=== PATIENT | male | born 1945 | race Caucasian/White ===

== ENCOUNTER 2022-09-05 11:33 | Inpatient (IN) | payer MEDICARE, OTHER ==
[2022-09-05] MEDS ORDERED: Acetaminophen 325 MG TAB PO PRN (14:12)
[2022-09-05] MEDS ORDERED: Dextrose 5% in Water 1,000 ML IV PRN (14:14)
[2022-09-05] MEDS ORDERED: Dextrose 50% Abboject 50 ML SYRINGE SLOW IVP PRN (14:14)
[2022-09-05] MEDS ORDERED: Ipratropium/Albuterol 3 ML NEB NEB PRN (14:17)
[2022-09-05 14:22] VITALS: BMI 34.2
[2022-09-05] MEDS ORDERED: Vancomycin HCl 750 MG in Sodium Chloride 0.9% 250 ML 250 ML IVPB SCH (15:00)
[2022-09-05] MEDS: Cefepime 2 GM in Sodium Chloride 0.9% 100 ML IVPB SCH (16:09)
[2022-09-05] MEDS: HumaLOG 300 UNITS/3 ML VIAL SC PRN ×2 (16:16→22:35)
[2022-09-05] MEDS: HYDROcodone/Acetaminophen 5/325 mg Tablet PO PRN (20:13)
[2022-09-05] MEDS ORDERED: Vancomycin 1 GM in Premix Bag 1 BAG IVPB SCH (21:00)
[2022-09-06] MEDS: HYDROcodone/Acetaminophen 5/325 mg Tablet PO PRN ×3 (02:43→20:37)
[2022-09-06] MEDS: Cefepime 2 GM in Sodium Chloride 0.9% 100 ML IVPB SCH ×2 (02:44→17:15)
[2022-09-06 04:55] LABS: #Eosinphils 0.1 thou/uL (0.0-0.7); #Lymphocytes 1.2 thou/uL (1.20-3.40); #Monocytes 1.5 thou/uL (0.11-0.59); #Neutrophils 9.7 thou/uL (1.40-6.50); %Basophils 0.3 % (0.0-1.0); %Eosinophils 0.7 % (0.0-10.0); %Lymphocytes 9.8 % (21.0-51.0); %Monocytes 11.8 % (0.0-10.0); %Neutrophils 77.4 % (42.0-75.0); Hemoglobin 12.9 g/dL (14.0-18.0); Mean Corpuscular HGB CONC 31.9 g/dL (32.0-36.0); Mean Corpuscular Hemoglobin 28.9 pg (27.0-31.0); Mean Corpuscular Volume 90.6 fl (78.0-98.0); Mean Platelet Volume 7.2 fL (7.4-10.4); Platelet Count 231 10x3/uL (130-400); RBC Distribution Width 14.1 % (11.5-14.5); Red Blood Cell (RBC) Count 4.46 mill/uL (4.70-6.10); White Blood Cell (WBC) Count 12.5 10x3/uL (4.8-10.8)
[2022-09-06 05:26] LABS: Anion Gap 17 mmol/L (10-20); BUN (Urea Nitrogen) 24 mg/dL (8.4-25.7); Calc. Creatinine Clearance 73 mL/min (70-130); Calcium 10.2 mg/dL (7.8-10.44); Carbon Dioxide 22 mmol/L (23-31); Chloride 100 mmol/L (98-107); Estimated GFR 53; Glucose 227 mg/dL (83-110); Potassium 4.7 mmol/L (3.5-5.1); Sodium 134 mmol/L (136-145)
[2022-09-06] MEDS: HumaLOG 300 UNITS/3 ML VIAL SC PRN ×3 (06:32→22:44)
[2022-09-06 08:53] LABS: SARS-CoV-2 NAA Rapid Test Not Detected (NotDetected)
[2022-09-06] MEDS: Tamsulosin HCl 0.4 MG CAP PO SCH (09:20)
[2022-09-06] MEDS: Furosemide 20 MG TAB PO SCH ×2 (09:20→14:11)
[2022-09-06] MEDS: Amiodarone 200 MG TAB PO SCH (09:21)
[2022-09-06] MEDS: Empagliflozin 25 MG TAB PO SCH (09:21)
[2022-09-06] MEDS: HumaLOG 300 UNITS/3 ML VIAL SC SCH ×4 (09:22→22:58)
[2022-09-06] MEDS: Spironolactone 25 MG TAB PO SCH (09:22)
[2022-09-06] MEDS: Morphine 2 MG/ML VIAL SLOW IVP PRN ×3 (09:23→19:40)
[2022-09-06] MEDS ORDERED: VANCOMYCIN 1.75 GM/500 ML BAG 1.75 GM in Premix Bag 1 BAG IVPB SCH (12:00)
[2022-09-06] MEDS ORDERED: Neomycin-Polymyxin 1 ML AMP ONE (14:40)
[2022-09-06] MEDS ORDERED: Sodium Chloride 0.9% 100 ML ONE (14:54)
[2022-09-06] MEDS ORDERED: CEFAZOLIN 2 GM VIAL ONE (14:54)
[2022-09-06] MEDS ORDERED: Ondansetron PF 4 MG/2 ML Vial ONE (15:00)
[2022-09-06] MEDS ORDERED: PROPOFOL 200 MG/20 ML VIAL ONE (15:00)
[2022-09-06] MEDS ORDERED: Fentanyl 100 MCG/2 ML VIAL ONE ×2 (16:17→17:36)
[2022-09-06] MEDS: CEFAZOLIN 2 GM in Sodium Chloride 0.9% 100 ML IVPB SCH ×3 (17:15→17:57)
[2022-09-06] MEDS ORDERED: Morphine 2 MG/ML VIAL SLOW IVP SCH (22:00)
[2022-09-06] MEDS: Atorvastatin Calcium 20 MG TAB PO SCH (22:43)
[2022-09-06] MEDS: DULoxetine 60 MG CAP PO SCH (22:43)
[2022-09-06] MEDS: Insulin Glargine 30 UNITS/0.3 ML VIAL SC SCH (22:58)
[2022-09-07] MEDS: HYDROcodone/Acetaminophen 5/325 mg Tablet PO PRN ×2 (00:44→23:45)
[2022-09-07] MEDS: Morphine 2 MG/ML VIAL SLOW IVP PRN (01:28)
[2022-09-07] MEDS: Cefepime 2 GM in Sodium Chloride 0.9% 100 ML IVPB SCH ×2 (03:33→15:05)
[2022-09-07 05:45] LABS: #Lymphocytes 0.8 thou/uL (1.20-3.40); #Monocytes 1.5 thou/uL (0.11-0.59); #Neutrophils 10.8 thou/uL (1.40-6.50); %Basophils 0.3 % (0.0-1.0); %Eosinophils 0.2 % (0.0-10.0); %Lymphocytes 5.9 % (21.0-51.0); %Monocytes 11.5 % (0.0-10.0); %Neutrophils 82.1 % (42.0-75.0); Hemoglobin 12.9 g/dL (14.0-18.0); Mean Corpuscular HGB CONC 32.1 g/dL (32.0-36.0); Mean Corpuscular Hemoglobin 29.3 pg (27.0-31.0); Mean Corpuscular Volume 91.2 fl (78.0-98.0); Mean Platelet Volume 7.5 fL (7.4-10.4); Platelet Count 237 10x3/uL (130-400); RBC Distribution Width 13.9 % (11.5-14.5); Red Blood Cell (RBC) Count 4.41 mill/uL (4.70-6.10); White Blood Cell (WBC) Count 13.2 10x3/uL (4.8-10.8)
[2022-09-07 05:50] LABS: Hemoglobin A1c 8.9 % (4.0-6.0)
[2022-09-07 06:08] LABS: Anion Gap 15 mmol/L (10-20); BUN (Urea Nitrogen) 23 mg/dL (8.4-25.7); CRP (Inflammatory) 24.94 mg/dL (= or < 0.5); Calc. Creatinine Clearance 73 mL/min (70-130); Calcium 10.2 mg/dL (7.8-10.44); Carbon Dioxide 26 mmol/L (23-31); Chloride 96 mmol/L (98-107); Estimated GFR 54; Glucose 225 mg/dL (83-110); Potassium 5.2 mmol/L (3.5-5.1); Sodium 132 mmol/L (136-145)
[2022-09-07] MEDS: HumaLOG 300 UNITS/3 ML VIAL SC PRN ×3 (06:23→16:26)
[2022-09-07] MEDS: Furosemide 20 MG TAB PO SCH ×2 (08:03→13:49)
[2022-09-07] MEDS: Spironolactone 25 MG TAB PO SCH (08:03)
[2022-09-07] MEDS: Tamsulosin HCl 0.4 MG CAP PO SCH (08:04)
[2022-09-07] MEDS: Amiodarone 200 MG TAB PO SCH (08:04)
[2022-09-07] MEDS: Morphine 4 MG/ML VIAL SLOW IVP PRN ×4 (08:04→20:38)
[2022-09-07] MEDS: HumaLOG 300 UNITS/3 ML VIAL SC SCH ×3 (08:50→20:43)
[2022-09-07] MEDS: Empagliflozin 25 MG TAB PO SCH (08:52)
[2022-09-07] MEDS: Lidocaine 5% Patch TD SCH (10:20)
[2022-09-07 11:11] LABS: Vancomycin, Trough 12.7 ug/mL
[2022-09-07] MEDS: VANCOMYCIN 2 GRAM/500 ML BAG 2 GM in Premix Bag 1 BAG IVPB SCH (12:11)
[2022-09-07] MEDS: DULoxetine 60 MG CAP PO SCH (20:36)
[2022-09-07] MEDS: Transdermal Patch Removal TOP SCH (20:37)
[2022-09-07] MEDS: Atorvastatin Calcium 20 MG TAB PO SCH (20:37)
[2022-09-07] MEDS: Insulin Glargine 30 UNITS/0.3 ML VIAL SC SCH (20:45)
[2022-09-07] MEDS: Melatonin 3 MG TAB PO PRN (23:45)
[2022-09-08] MEDS: Cefepime 2 GM in Sodium Chloride 0.9% 100 ML IVPB SCH ×2 (03:50→14:32)
[2022-09-08] MEDS: Morphine 4 MG/ML VIAL SLOW IVP PRN ×2 (05:29→22:24)
[2022-09-08] MEDS: Spironolactone 25 MG TAB PO SCH (08:43)
[2022-09-08] MEDS: Tamsulosin HCl 0.4 MG CAP PO SCH (08:43)
[2022-09-08] MEDS: Amiodarone 200 MG TAB PO SCH (08:43)
[2022-09-08] MEDS: Furosemide 20 MG TAB PO SCH ×2 (08:43→15:40)
[2022-09-08] MEDS: HumaLOG 300 UNITS/3 ML VIAL SC SCH ×3 (08:44→20:23)
[2022-09-08] MEDS: Empagliflozin 25 MG TAB PO SCH (08:45)
[2022-09-08] MEDS: Lidocaine 5% Patch TD SCH (08:51)
[2022-09-08] MEDS: HumaLOG 300 UNITS/3 ML VIAL SC PRN ×2 (11:00→18:29)
[2022-09-08] MEDS: VANCOMYCIN 2 GRAM/500 ML BAG 2 GM in Premix Bag 1 BAG IVPB SCH (11:32)
[2022-09-08] MEDS: Ondansetron PF 4 MG/2 ML Vial IVP PRN ×2 (14:32→20:36)
[2022-09-08] MEDS: Insulin Glargine 30 UNITS/0.3 ML VIAL SC SCH (20:24)
[2022-09-08] MEDS: DULoxetine 60 MG CAP PO SCH (20:24)
[2022-09-08] MEDS: Atorvastatin Calcium 20 MG TAB PO SCH (20:24)
[2022-09-08] MEDS: Transdermal Patch Removal TOP SCH (22:24)
[2022-09-09] MEDS: Cefepime 2 GM in Sodium Chloride 0.9% 100 ML IVPB SCH ×2 (03:02→16:27)
[2022-09-09 05:42] LABS: #Basophils 0.1 thou/uL (0.0-0.2); #Eosinphils 0.2 thou/uL (0.0-0.7); #Lymphocytes 1.3 thou/uL (1.20-3.40); #Monocytes 1.1 thou/uL (0.11-0.59); #Neutrophils 6.8 thou/uL (1.40-6.50); %Basophils 0.8 % (0.0-1.0); %Eosinophils 1.9 % (0.0-10.0); %Lymphocytes 13.8 % (21.0-51.0); %Neutrophils 71.5 % (42.0-75.0); Hemoglobin 12.9 g/dL (14.0-18.0); Mean Corpuscular Volume 90.7 fl (78.0-98.0); Mean Platelet Volume 6.9 fL (7.4-10.4); Platelet Count 274 10x3/uL (130-400); RBC Distribution Width 13.7 % (11.5-14.5); Red Blood Cell (RBC) Count 4.45 mill/uL (4.70-6.10); White Blood Cell (WBC) Count 9.5 10x3/uL (4.8-10.8)
[2022-09-09 06:01] LABS: Anion Gap 14 mmol/L (10-20); BUN (Urea Nitrogen) 38 mg/dL (8.4-25.7); CRP (Inflammatory) 22.22 mg/dL (= or < 0.5); Calc. Creatinine Clearance 67 mL/min (70-130); Calcium 10.4 mg/dL (7.8-10.44); Carbon Dioxide 30 mmol/L (23-31); Chloride 94 mmol/L (98-107); Estimated GFR 49; Glucose 166 mg/dL (83-110); Potassium 4.4 mmol/L (3.5-5.1); Sodium 134 mmol/L (136-145)
[2022-09-09] MEDS: HumaLOG 300 UNITS/3 ML VIAL SC PRN ×4 (06:10→20:35)
[2022-09-09] MEDS: Furosemide 20 MG TAB PO SCH ×2 (09:22→17:02)
[2022-09-09] MEDS: Tamsulosin HCl 0.4 MG CAP PO SCH (09:22)
[2022-09-09] MEDS: Amiodarone 200 MG TAB PO SCH (09:22)
[2022-09-09] MEDS: HYDROcodone/Acetaminophen 5/325 mg Tablet PO PRN ×3 (09:23→20:55)
[2022-09-09] MEDS: Spironolactone 25 MG TAB PO SCH (09:23)
[2022-09-09] MEDS: Empagliflozin 25 MG TAB PO SCH (09:25)
[2022-09-09] MEDS: HumaLOG 300 UNITS/3 ML VIAL SC SCH ×3 (09:26→20:35)
[2022-09-09] MEDS: Lidocaine 5% Patch TD SCH (09:26)
[2022-09-09 11:31] LABS: Vancomycin, Trough 21.6 ug/mL
[2022-09-09] MEDS: VANCOMYCIN 1.75 GM/500 ML BAG 1.75 GM in Premix Bag 1 BAG IVPB SCH (13:41)
[2022-09-09] MEDS: Apixaban 5 MG TAB PO SCH (20:33)
[2022-09-09] MEDS: DULoxetine 60 MG CAP PO SCH (20:34)
[2022-09-09] MEDS: Atorvastatin Calcium 20 MG TAB PO SCH (20:34)
[2022-09-09] MEDS: Insulin Glargine 30 UNITS/0.3 ML VIAL SC SCH (20:34)
[2022-09-09] MEDS: Melatonin 3 MG TAB PO PRN (20:57)
[2022-09-09] MEDS: Transdermal Patch Removal TOP SCH (21:08)
[2022-09-09] MEDS: Senokot S 8.6-50 MG TAB PO PRN (21:14)
[2022-09-10] MEDS: Cefepime 2 GM in Sodium Chloride 0.9% 100 ML IVPB SCH ×2 (02:58→15:53)
[2022-09-10 06:20] LABS: #Eosinphils 0.1 thou/uL (0.0-0.7); #Monocytes 0.9 thou/uL (0.11-0.59); #Neutrophils 7.2 thou/uL (1.40-6.50); %Basophils 0.4 % (0.0-1.0); %Eosinophils 1.3 % (0.0-10.0); %Lymphocytes 10.8 % (21.0-51.0); %Monocytes 9.8 % (0.0-10.0); %Neutrophils 77.6 % (42.0-75.0); Mean Corpuscular Hemoglobin 29.2 pg (27.0-31.0); Mean Corpuscular Volume 91.3 fl (78.0-98.0); Mean Platelet Volume 7.3 fL (7.4-10.4); Platelet Count 274 10x3/uL (130-400); RBC Distribution Width 13.8 % (11.5-14.5); Red Blood Cell (RBC) Count 4.47 mill/uL (4.70-6.10); White Blood Cell (WBC) Count 9.3 10x3/uL (4.8-10.8)
[2022-09-10 06:37] LABS: Anion Gap 16 mmol/L (10-20); BUN (Urea Nitrogen) 36 mg/dL (8.4-25.7); CRP (Inflammatory) 11.66 mg/dL (= or < 0.5); Calc. Creatinine Clearance 78 mL/min (70-130); Calcium 10.3 mg/dL (7.8-10.44); Carbon Dioxide 29 mmol/L (23-31); Chloride 95 mmol/L (98-107); Estimated GFR 58; Glucose 137 mg/dL (83-110); Potassium 4.8 mmol/L (3.5-5.1); Sodium 135 mmol/L (136-145)
[2022-09-10] MEDS: Lidocaine 5% Patch TD SCH (09:08)
[2022-09-10] MEDS: Furosemide 20 MG TAB PO SCH ×2 (09:09→14:14)
[2022-09-10] MEDS: Amiodarone 200 MG TAB PO SCH (09:09)
[2022-09-10] MEDS: Spironolactone 25 MG TAB PO SCH (09:09)
[2022-09-10] MEDS: Tamsulosin HCl 0.4 MG CAP PO SCH (09:09)
[2022-09-10] MEDS: Apixaban 5 MG TAB PO SCH ×2 (09:09→20:15)
[2022-09-10] MEDS: Empagliflozin 25 MG TAB PO SCH (09:10)
[2022-09-10] MEDS: HumaLOG 300 UNITS/3 ML VIAL SC SCH ×3 (09:13→20:18)
[2022-09-10] MEDS: Morphine 4 MG/ML VIAL SLOW IVP PRN ×2 (11:19→13:48)
[2022-09-10] MEDS: VANCOMYCIN 1.75 GM/500 ML BAG 1.75 GM in Premix Bag 1 BAG IVPB SCH (14:14)
[2022-09-10] MEDS: HumaLOG 300 UNITS/3 ML VIAL SC PRN ×2 (14:30→17:01)
[2022-09-10] MEDS: DULoxetine 60 MG CAP PO SCH (20:16)
[2022-09-10] MEDS: Atorvastatin Calcium 20 MG TAB PO SCH (20:16)
[2022-09-10] MEDS: Melatonin 3 MG TAB PO PRN (20:16)
[2022-09-10] MEDS: HYDROcodone/Acetaminophen 5/325 mg Tablet PO PRN (20:16)
[2022-09-10] MEDS: Insulin Glargine 30 UNITS/0.3 ML VIAL SC SCH (20:18)
[2022-09-10] MEDS: Transdermal Patch Removal TOP SCH (21:05)
[2022-09-11] MEDS: Cefepime 2 GM in Sodium Chloride 0.9% 100 ML IVPB SCH ×2 (03:02→14:50)
[2022-09-11] MEDS: HumaLOG 300 UNITS/3 ML VIAL SC PRN ×3 (05:49→22:41)
[2022-09-11] MEDS: Senokot S 8.6-50 MG TAB PO PRN ×2 (05:57→11:17)
[2022-09-11 06:12] LABS: #Eosinphils 0.2 thou/uL (0.0-0.7); #Lymphocytes 1.3 thou/uL (1.20-3.40); #Neutrophils 6.9 thou/uL (1.40-6.50); %Basophils 0.2 % (0.0-1.0); %Eosinophils 2.5 % (0.0-10.0); %Monocytes 10.9 % (0.0-10.0); %Neutrophils 72.4 % (42.0-75.0); Hemoglobin 12.9 g/dL (14.0-18.0); Mean Corpuscular HGB CONC 31.8 g/dL (32.0-36.0); Mean Corpuscular Hemoglobin 29.3 pg (27.0-31.0); Mean Platelet Volume 7.2 fL (7.4-10.4); Platelet Count 282 10x3/uL (130-400); RBC Distribution Width 13.8 % (11.5-14.5); Red Blood Cell (RBC) Count 4.39 mill/uL (4.70-6.10); White Blood Cell (WBC) Count 9.6 10x3/uL (4.8-10.8)
[2022-09-11 06:38] LABS: Anion Gap 14 mmol/L (10-20); BUN (Urea Nitrogen) 39 mg/dL (8.4-25.7); CRP (Inflammatory) 8.24 mg/dL (= or < 0.5); Calc. Creatinine Clearance 74 mL/min (70-130); Calcium 10.5 mg/dL (7.8-10.44); Carbon Dioxide 29 mmol/L (23-31); Chloride 96 mmol/L (98-107); Estimated GFR 55; Glucose 194 mg/dL (83-110); Potassium 4.3 mmol/L (3.5-5.1); Sodium 135 mmol/L (136-145)
[2022-09-11] MEDS: Calcium Carbonate 500 MG ChewTAB PO PRN (08:44)
[2022-09-11] MEDS: Lidocaine 5% Patch TD SCH (08:44)
[2022-09-11] MEDS: Amiodarone 200 MG TAB PO SCH (08:45)
[2022-09-11] MEDS: Empagliflozin 25 MG TAB PO SCH (08:45)
[2022-09-11] MEDS: Spironolactone 25 MG TAB PO SCH (08:45)
[2022-09-11] MEDS: Furosemide 20 MG TAB PO SCH ×2 (08:45→13:12)
[2022-09-11] MEDS: Tamsulosin HCl 0.4 MG CAP PO SCH (08:45)
[2022-09-11] MEDS: Apixaban 5 MG TAB PO SCH ×2 (08:45→22:40)
[2022-09-11] MEDS: HumaLOG 300 UNITS/3 ML VIAL SC SCH ×3 (08:55→22:34)
[2022-09-11] MEDS ORDERED: Simethicone Chewable 80 MG TAB PO PRN (09:56)
[2022-09-11] MEDS ORDERED: Bisacodyl 10 MG SUPP PR PRN (11:33)
[2022-09-11] MEDS ORDERED: Polyethylene Glycol 3350 17 GM Packet PO SCH (11:45)
[2022-09-11] MEDS ORDERED: Docusate 100 MG CAP PO SCH (11:45)
[2022-09-11] MEDS: HYDROcodone/Acetaminophen 5/325 mg Tablet PO PRN (13:11)
[2022-09-11] MEDS ORDERED: VANCOMYCIN 1.75 GM/500 ML BAG 1.75 GM in Premix Bag 1 BAG IVPB SCH (13:15)
[2022-09-11] MEDS: VANCOMYCIN 1.75 GM/500 ML BAG 1.75 GM in Premix Bag 1 BAG IVPB SCH (14:22)
[2022-09-11] MEDS: Morphine 4 MG/ML VIAL SLOW IVP PRN (22:22)
[2022-09-11] MEDS: Insulin Glargine 30 UNITS/0.3 ML VIAL SC SCH (22:36)
[2022-09-11] MEDS: Atorvastatin Calcium 20 MG TAB PO SCH (22:40)
[2022-09-11] MEDS: DULoxetine 60 MG CAP PO SCH (22:40)
[2022-09-11] MEDS: Docusate 100 MG CAP PO SCH (22:40)
[2022-09-11] MEDS: Transdermal Patch Removal TOP SCH (22:54)
[2022-09-12 04:28] LABS: Vancomycin, Trough 17.5 ug/mL
[2022-09-12] MEDS: Lidocaine 5% Patch TD SCH (10:20)
[2022-09-12] MEDS: Polyethylene Glycol 3350 17 GM Packet PO SCH (10:21)
[2022-09-12] MEDS: Colchicine 0.6 MG TAB PO SCH (10:22)
[2022-09-12] MEDS: Amiodarone 200 MG TAB PO SCH (10:22)
[2022-09-12] MEDS: Apixaban 5 MG TAB PO SCH ×2 (10:22→23:11)
[2022-09-12] MEDS: Furosemide 20 MG TAB PO SCH ×2 (10:22→14:45)
[2022-09-12] MEDS: Docusate 100 MG CAP PO SCH ×2 (10:22→20:15)
[2022-09-12] MEDS: Spironolactone 25 MG TAB PO SCH (10:23)
[2022-09-12] MEDS: Tamsulosin HCl 0.4 MG CAP PO SCH (10:25)
[2022-09-12] MEDS: HumaLOG 300 UNITS/3 ML VIAL SC SCH ×3 (10:33→20:20)
[2022-09-12] MEDS: Empagliflozin 25 MG TAB PO SCH (10:35)
[2022-09-12] MEDS: HumaLOG 300 UNITS/3 ML VIAL SC PRN ×2 (13:17→20:21)
[2022-09-12] MEDS: Morphine 4 MG/ML VIAL SLOW IVP PRN ×2 (14:45→22:35)
[2022-09-12] MEDS ORDERED: VANCOMYCIN 1.25 GM/250 ML BAG 1.25 GM in Premix Bag 1 BAG IVPB SCH (16:38)
[2022-09-12] MEDS: Cefepime 2 GM in Sodium Chloride 0.9% 100 ML IVPB SCH (17:12)
[2022-09-12] MEDS: Vancomycin 1.5 GRAM/300 ML BAG 1.5 GM in Premix Bag 1 BAG IVPB SCH (20:08)
[2022-09-12] MEDS: Atorvastatin Calcium 20 MG TAB PO SCH (20:15)
[2022-09-12] MEDS: DULoxetine 60 MG CAP PO SCH (20:15)
[2022-09-12] MEDS: Insulin Glargine 30 UNITS/0.3 ML VIAL SC SCH (20:16)
[2022-09-12] MEDS: Transdermal Patch Removal TOP SCH (23:10)
[2022-09-13] MEDS: Cefepime 2 GM in Sodium Chloride 0.9% 100 ML IVPB SCH ×2 (06:05→17:13)
[2022-09-13] MEDS: Lidocaine 5% Patch TD SCH (09:33)
[2022-09-13] MEDS: Colchicine 0.6 MG TAB PO SCH (09:34)
[2022-09-13] MEDS: Empagliflozin 25 MG TAB PO SCH (09:34)
[2022-09-13] MEDS: Polyethylene Glycol 3350 17 GM Packet PO SCH (09:34)
[2022-09-13] MEDS: HumaLOG 300 UNITS/3 ML VIAL SC SCH ×3 (09:34→21:55)
[2022-09-13] MEDS: Apixaban 5 MG TAB PO SCH ×2 (09:35→21:28)
[2022-09-13] MEDS: Amiodarone 200 MG TAB PO SCH (09:35)
[2022-09-13] MEDS: Docusate 100 MG CAP PO SCH ×2 (09:35→21:54)
[2022-09-13] MEDS: Tamsulosin HCl 0.4 MG CAP PO SCH (09:35)
[2022-09-13] MEDS: Spironolactone 25 MG TAB PO SCH (09:35)
[2022-09-13] MEDS: Furosemide 20 MG TAB PO SCH ×2 (09:35→13:35)
[2022-09-13] MEDS: HYDROcodone/Acetaminophen 5/325 mg Tablet PO PRN ×3 (10:33→19:22)
[2022-09-13] MEDS: Vancomycin 1.5 GRAM/300 ML BAG 1.5 GM in Premix Bag 1 BAG IVPB SCH (21:54)
[2022-09-13] MEDS: Atorvastatin Calcium 20 MG TAB PO SCH (21:54)
[2022-09-13] MEDS: DULoxetine 60 MG CAP PO SCH (21:54)
[2022-09-13] MEDS: Transdermal Patch Removal TOP SCH (22:05)
[2022-09-13] MEDS: Insulin Glargine 30 UNITS/0.3 ML VIAL SC SCH (23:16)
[2022-09-13] MEDS: Morphine 4 MG/ML VIAL SLOW IVP PRN (23:18)
[2022-09-14] MEDS: Cefepime 2 GM in Sodium Chloride 0.9% 100 ML IVPB SCH ×2 (05:24→18:08)
[2022-09-14 06:12] LABS: #Basophils 0.1 thou/uL (0.0-0.2); #Eosinphils 0.4 thou/uL (0.0-0.7); #Lymphocytes 1.9 thou/uL (1.20-3.40); #Monocytes 1.1 thou/uL (0.11-0.59); #Neutrophils 6.2 thou/uL (1.40-6.50); %Basophils 0.6 % (0.0-1.0); %Eosinophils 3.7 % (0.0-10.0); %Lymphocytes 19.4 % (21.0-51.0); %Monocytes 11.1 % (0.0-10.0); %Neutrophils 65.2 % (42.0-75.0); Hemoglobin 13.9 g/dL (14.0-18.0); Mean Corpuscular HGB CONC 31.8 g/dL (32.0-36.0); Mean Corpuscular Hemoglobin 29.1 pg (27.0-31.0); Mean Corpuscular Volume 91.4 fl (78.0-98.0); Mean Platelet Volume 7.3 fL (7.4-10.4); Platelet Count 278 10x3/uL (130-400); RBC Distribution Width 14.2 % (11.5-14.5); Red Blood Cell (RBC) Count 4.78 mill/uL (4.70-6.10); White Blood Cell (WBC) Count 9.6 10x3/uL (4.8-10.8)
[2022-09-14 06:34] LABS: Anion Gap 15 mmol/L (10-20); BUN (Urea Nitrogen) 32 mg/dL (8.4-25.7); Calc. Creatinine Clearance 68 mL/min (70-130); Calcium 10.5 mg/dL (7.8-10.44); Carbon Dioxide 30 mmol/L (23-31); Chloride 96 mmol/L (98-107); Estimated GFR 49; Glucose 177 mg/dL (83-110); Magnesium 2.4 mg/dL (1.6-2.6); Potassium 4.6 mmol/L (3.5-5.1); Sodium 136 mmol/L (136-145)
[2022-09-14] MEDS: Apixaban 5 MG TAB PO SCH ×2 (09:17→21:11)
[2022-09-14] MEDS: Polyethylene Glycol 3350 17 GM Packet PO SCH (09:19)
[2022-09-14] MEDS: Lidocaine 5% Patch TD SCH (09:19)
[2022-09-14] MEDS: Docusate 100 MG CAP PO SCH ×2 (09:20→21:11)
[2022-09-14] MEDS: Colchicine 0.6 MG TAB PO SCH (09:20)
[2022-09-14] MEDS: Spironolactone 25 MG TAB PO SCH (09:20)
[2022-09-14] MEDS: Amiodarone 200 MG TAB PO SCH (09:20)
[2022-09-14] MEDS: Furosemide 20 MG TAB PO SCH ×2 (09:20→15:56)
[2022-09-14] MEDS: Tamsulosin HCl 0.4 MG CAP PO SCH (09:21)
[2022-09-14] MEDS: HumaLOG 300 UNITS/3 ML VIAL SC SCH ×3 (09:21→21:13)
[2022-09-14] MEDS: Morphine 4 MG/ML VIAL SLOW IVP PRN ×2 (09:24→22:56)
[2022-09-14] MEDS: Empagliflozin 25 MG TAB PO SCH (10:05)
[2022-09-14] MEDS: HumaLOG 300 UNITS/3 ML VIAL SC PRN ×2 (12:49→18:11)
[2022-09-14 19:28] LABS: Vancomycin, Trough 21.1 ug/mL
[2022-09-14] MEDS: Atorvastatin Calcium 20 MG TAB PO SCH (21:11)
[2022-09-14] MEDS: DULoxetine 60 MG CAP PO SCH (21:11)
[2022-09-14] MEDS: Insulin Glargine 30 UNITS/0.3 ML VIAL SC SCH (21:12)
[2022-09-14] MEDS: Transdermal Patch Removal TOP SCH (21:13)
[2022-09-15] MEDS: Cefepime 2 GM in Sodium Chloride 0.9% 100 ML IVPB SCH ×2 (05:27→17:10)
[2022-09-15] MEDS: VANCOMYCIN 1.25 GM/250 ML BAG 1.25 GM in Premix Bag 1 BAG IVPB SCH (06:24)
[2022-09-15 06:34] LABS: Anion Gap 14 mmol/L (10-20); BUN (Urea Nitrogen) 33 mg/dL (8.4-25.7); Calc. Creatinine Clearance 76 mL/min (70-130); Calcium 10.3 mg/dL (7.8-10.44); Carbon Dioxide 25 mmol/L (23-31); Chloride 97 mmol/L (98-107); Estimated GFR 56; Glucose 140 mg/dL (83-110); Magnesium 2.4 mg/dL (1.6-2.6); Potassium 4.1 mmol/L (3.5-5.1); Sodium 132 mmol/L (136-145)
[2022-09-15] MEDS: HumaLOG 300 UNITS/3 ML VIAL SC SCH ×3 (08:11→20:31)
[2022-09-15] MEDS: Empagliflozin 25 MG TAB PO SCH (08:12)
[2022-09-15] MEDS: Furosemide 20 MG TAB PO SCH ×2 (08:13→13:54)
[2022-09-15] MEDS: HYDROcodone/Acetaminophen 5/325 mg Tablet PO PRN ×2 (08:13→12:12)
[2022-09-15] MEDS: Tamsulosin HCl 0.4 MG CAP PO SCH (08:13)
[2022-09-15] MEDS: Spironolactone 25 MG TAB PO SCH (08:13)
[2022-09-15] MEDS: Amiodarone 200 MG TAB PO SCH (08:13)
[2022-09-15] MEDS: Colchicine 0.6 MG TAB PO SCH (08:14)
[2022-09-15] MEDS: Docusate 100 MG CAP PO SCH ×2 (08:14→20:31)
[2022-09-15] MEDS: Polyethylene Glycol 3350 17 GM Packet PO SCH (08:16)
[2022-09-15] MEDS: Apixaban 5 MG TAB PO SCH ×2 (08:16→20:31)
[2022-09-15] MEDS: Lidocaine 5% Patch TD SCH (08:16)
[2022-09-15] MEDS: HumaLOG 300 UNITS/3 ML VIAL SC PRN ×2 (12:12→17:09)
[2022-09-15] MEDS: DULoxetine 60 MG CAP PO SCH (20:31)
[2022-09-15] MEDS: Atorvastatin Calcium 20 MG TAB PO SCH (20:31)
[2022-09-15] MEDS: Insulin Glargine 30 UNITS/0.3 ML VIAL SC SCH (20:32)
[2022-09-15] MEDS: Morphine 4 MG/ML VIAL SLOW IVP PRN (20:33)
[2022-09-15] MEDS: Transdermal Patch Removal TOP SCH (20:33)
[2022-09-16] MEDS: Morphine 4 MG/ML VIAL SLOW IVP PRN ×5 (00:42→20:21)
[2022-09-16 04:30] LABS: #Basophils 0.1 thou/uL (0.0-0.2); #Eosinphils 0.4 thou/uL (0.0-0.7); #Lymphocytes 1.9 thou/uL (1.20-3.40); #Monocytes 1.1 thou/uL (0.11-0.59); #Neutrophils 5.5 thou/uL (1.40-6.50); %Basophils 0.8 % (0.0-1.0); %Eosinophils 4.4 % (0.0-10.0); %Lymphocytes 21.6 % (21.0-51.0); %Monocytes 11.7 % (0.0-10.0); %Neutrophils 61.5 % (42.0-75.0); Hemoglobin 13.5 g/dL (14.0-18.0); Mean Corpuscular HGB CONC 31.4 g/dL (32.0-36.0); Mean Corpuscular Hemoglobin 28.5 pg (27.0-31.0); Mean Corpuscular Volume 90.8 fl (78.0-98.0); Mean Platelet Volume 7.7 fL (7.4-10.4); Platelet Count 248 10x3/uL (130-400); RBC Distribution Width 14.2 % (11.5-14.5); Red Blood Cell (RBC) Count 4.73 mill/uL (4.70-6.10)
[2022-09-16 05:15] LABS: Anion Gap 12 mmol/L (10-20); BUN (Urea Nitrogen) 32 mg/dL (8.4-25.7); Calc. Creatinine Clearance 66 mL/min (70-130); Calcium 10.1 mg/dL (7.8-10.44); Carbon Dioxide 28 mmol/L (23-31); Chloride 99 mmol/L (98-107); Estimated GFR 47; Glucose 184 mg/dL (83-110); Magnesium 2.4 mg/dL (1.6-2.6); Potassium 4.2 mmol/L (3.5-5.1); Sodium 135 mmol/L (136-145)
[2022-09-16] MEDS: Cefepime 2 GM in Sodium Chloride 0.9% 100 ML IVPB SCH ×2 (05:21→17:42)
[2022-09-16] MEDS: HumaLOG 300 UNITS/3 ML VIAL SC PRN (05:22)
[2022-09-16] MEDS: VANCOMYCIN 1.25 GM/250 ML BAG 1.25 GM in Premix Bag 1 BAG IVPB SCH (05:59)
[2022-09-16] MEDS: Docusate 100 MG CAP PO SCH ×2 (09:45→20:20)
[2022-09-16] MEDS: Furosemide 20 MG TAB PO SCH ×2 (09:45→14:50)
[2022-09-16] MEDS: Spironolactone 25 MG TAB PO SCH (09:45)
[2022-09-16] MEDS: Amiodarone 200 MG TAB PO SCH (09:45)
[2022-09-16] MEDS: Colchicine 0.6 MG TAB PO SCH (09:45)
[2022-09-16] MEDS: Apixaban 5 MG TAB PO SCH ×2 (09:46→20:20)
[2022-09-16] MEDS: Empagliflozin 25 MG TAB PO SCH (09:46)
[2022-09-16] MEDS: Tamsulosin HCl 0.4 MG CAP PO SCH (09:46)
[2022-09-16] MEDS: HumaLOG 300 UNITS/3 ML VIAL SC SCH ×3 (09:48→21:08)
[2022-09-16] MEDS: Polyethylene Glycol 3350 17 GM Packet PO SCH (09:49)
[2022-09-16] MEDS: Lidocaine 5% Patch TD SCH (09:49)
[2022-09-16] MEDS: Melatonin 3 MG TAB PO PRN (20:19)
[2022-09-16] MEDS: Atorvastatin Calcium 20 MG TAB PO SCH (20:20)
[2022-09-16] MEDS: DULoxetine 60 MG CAP PO SCH (20:20)
[2022-09-16] MEDS: Insulin Glargine 30 UNITS/0.3 ML VIAL SC SCH (21:09)
[2022-09-16] MEDS: Transdermal Patch Removal TOP SCH (21:10)
[2022-09-17 05:00] LABS: #Basophils 0.1 thou/uL (0.0-0.2); #Eosinphils 0.3 thou/uL (0.0-0.7); #Lymphocytes 1.5 thou/uL (1.20-3.40); #Neutrophils 5.9 thou/uL (1.40-6.50); %Basophils 0.8 % (0.0-1.0); %Eosinophils 3.7 % (0.0-10.0); %Lymphocytes 16.5 % (21.0-51.0); %Monocytes 11.5 % (0.0-10.0); %Neutrophils 67.5 % (42.0-75.0); Hemoglobin 13.4 g/dL (14.0-18.0); Mean Corpuscular HGB CONC 31.6 g/dL (32.0-36.0); Mean Corpuscular Hemoglobin 28.7 pg (27.0-31.0); Mean Corpuscular Volume 90.7 fl (78.0-98.0); Mean Platelet Volume 7.5 fL (7.4-10.4); Platelet Count 195 10x3/uL (130-400); RBC Distribution Width 14.2 % (11.5-14.5); Red Blood Cell (RBC) Count 4.69 mill/uL (4.70-6.10); White Blood Cell (WBC) Count 8.8 10x3/uL (4.8-10.8)
[2022-09-17] MEDS: Cefepime 2 GM in Sodium Chloride 0.9% 100 ML IVPB SCH (05:04)
[2022-09-17 05:25] LABS: Anion Gap 14 mmol/L (10-20); BUN (Urea Nitrogen) 30 mg/dL (8.4-25.7); Calc. Creatinine Clearance 69 mL/min (70-130); Calcium 9.8 mg/dL (7.8-10.44); Carbon Dioxide 26 mmol/L (23-31); Chloride 98 mmol/L (98-107); Estimated GFR 50; Glucose 203 mg/dL (83-110); Magnesium 2.2 mg/dL (1.6-2.6); Potassium 4.4 mmol/L (3.5-5.1); Sodium 134 mmol/L (136-145)
[2022-09-17 05:32] LABS: Vancomycin, Trough 21.6 ug/mL
[2022-09-17] MEDS ORDERED: VANCOMYCIN 1.25 GM/250 ML BAG 1.25 GM in Premix Bag 1 BAG IVPB SCH (06:00)
[2022-09-17] MEDS: Morphine 4 MG/ML VIAL SLOW IVP PRN ×2 (06:41→12:39)
[2022-09-17] MEDS: Tamsulosin HCl 0.4 MG CAP PO SCH (08:32)
[2022-09-17] MEDS: Saccharomyces boulardii 250 MG CAP PO SCH (08:32)
[2022-09-17] MEDS: Apixaban 5 MG TAB PO SCH ×2 (08:32→20:14)
[2022-09-17] MEDS: Amiodarone 200 MG TAB PO SCH (08:32)
[2022-09-17] MEDS: Docusate 100 MG CAP PO SCH ×2 (08:32→20:14)
[2022-09-17] MEDS: Lidocaine 5% Patch TD SCH (08:33)
[2022-09-17] MEDS: Colchicine 0.6 MG TAB PO SCH (08:33)
[2022-09-17] MEDS: Spironolactone 25 MG TAB PO SCH (08:33)
[2022-09-17] MEDS: Furosemide 20 MG TAB PO SCH ×2 (08:33→15:24)
[2022-09-17] MEDS: Polyethylene Glycol 3350 17 GM Packet PO SCH (08:34)
[2022-09-17] MEDS: HumaLOG 300 UNITS/3 ML VIAL SC SCH ×3 (08:36→20:16)
[2022-09-17] MEDS: Empagliflozin 25 MG TAB PO SCH (08:43)
[2022-09-17] MEDS: HYDROcodone/Acetaminophen 5/325 mg Tablet PO PRN ×2 (08:43→20:14)
[2022-09-17] MEDS: HumaLOG 300 UNITS/3 ML VIAL SC PRN (15:25)
[2022-09-17] MEDS ORDERED: Vancomycin 1 GM in Premix Bag 1 BAG IVPB SCH (18:00)
[2022-09-17] MEDS: Atorvastatin Calcium 20 MG TAB PO SCH (20:14)
[2022-09-17] MEDS: DULoxetine 60 MG CAP PO SCH (20:14)
[2022-09-17] MEDS: Insulin Glargine 30 UNITS/0.3 ML VIAL SC SCH (20:16)
[2022-09-17] MEDS: Transdermal Patch Removal TOP SCH (20:17)
[2022-09-18] MEDS: HYDROcodone/Acetaminophen 5/325 mg Tablet PO PRN ×4 (02:55→20:01)
[2022-09-18 04:39] LABS: Anion Gap 15 mmol/L (10-20); BUN (Urea Nitrogen) 31 mg/dL (8.4-25.7); Calc. Creatinine Clearance 65 mL/min (70-130); Calcium 9.9 mg/dL (7.8-10.44); Carbon Dioxide 26 mmol/L (23-31); Chloride 98 mmol/L (98-107); Estimated GFR 47; Glucose 218 mg/dL (83-110); Magnesium 2.3 mg/dL (1.6-2.6); Potassium 4.1 mmol/L (3.5-5.1); Sodium 135 mmol/L (136-145)
[2022-09-18] MEDS: HumaLOG 300 UNITS/3 ML VIAL SC PRN ×2 (05:50→13:15)
[2022-09-18] MEDS: Amiodarone 200 MG TAB PO SCH (08:39)
[2022-09-18] MEDS: Furosemide 20 MG TAB PO SCH ×2 (08:39→13:21)
[2022-09-18] MEDS: Apixaban 5 MG TAB PO SCH ×2 (08:39→20:01)
[2022-09-18] MEDS: Saccharomyces boulardii 250 MG CAP PO SCH (08:39)
[2022-09-18] MEDS: Docusate 100 MG CAP PO SCH ×2 (08:39→20:01)
[2022-09-18] MEDS: Colchicine 0.6 MG TAB PO SCH (08:39)
[2022-09-18] MEDS: Spironolactone 25 MG TAB PO SCH (08:39)
[2022-09-18] MEDS: Tamsulosin HCl 0.4 MG CAP PO SCH (08:39)
[2022-09-18] MEDS: Polyethylene Glycol 3350 17 GM Packet PO SCH (08:40)
[2022-09-18] MEDS: Lidocaine 5% Patch TD SCH (08:40)
[2022-09-18] MEDS: HumaLOG 300 UNITS/3 ML VIAL SC SCH ×3 (08:40→20:10)
[2022-09-18] MEDS: Empagliflozin 25 MG TAB PO SCH (08:41)
[2022-09-18] MEDS: DAPTOmycin 500 MG in Sodium Chloride 0.9% 100 ML IVPB SCH (13:14)
[2022-09-18] MEDS: Calcium Carbonate 500 MG ChewTAB PO PRN (16:43)
[2022-09-18] MEDS: Atorvastatin Calcium 20 MG TAB PO SCH (20:01)
[2022-09-18] MEDS: DULoxetine 60 MG CAP PO SCH (20:01)
[2022-09-18] MEDS: Insulin Glargine 30 UNITS/0.3 ML VIAL SC SCH (20:11)
[2022-09-18] MEDS: Transdermal Patch Removal TOP SCH (20:12)
[2022-09-19 05:23] LABS: Chloride 97 mmol/L (98-107); Potassium 4.3 mmol/L (3.5-5.1)
[2022-09-19 05:24] LABS: Calcium 10.4 mg/dL (7.8-10.44); Sodium 135 mmol/L (136-145)
[2022-09-19 05:25] LABS: Glucose 146 mg/dL (83-110)
[2022-09-19 05:26] LABS: Anion Gap 15 mmol/L (10-20); Carbon Dioxide 27 mmol/L (23-31)
[2022-09-19 05:28] LABS: Calc. Creatinine Clearance 70 mL/min (70-130); Estimated GFR 51
[2022-09-19 05:29] LABS: BUN (Urea Nitrogen) 34 mg/dL (8.4-25.7)
[2022-09-19 05:30] LABS: CK (CPK) 61 U/L (30-200); Magnesium 2.5 mg/dL (1.6-2.6)
[2022-09-19] MEDS: HYDROcodone/Acetaminophen 5/325 mg Tablet PO PRN ×3 (06:45→19:32)
[2022-09-19] MEDS: Amiodarone 200 MG TAB PO SCH (09:15)
[2022-09-19] MEDS: Tamsulosin HCl 0.4 MG CAP PO SCH (09:16)
[2022-09-19] MEDS: Docusate 100 MG CAP PO SCH ×2 (09:16→20:05)
[2022-09-19] MEDS: Furosemide 20 MG TAB PO SCH ×2 (09:16→14:50)
[2022-09-19] MEDS: Polyethylene Glycol 3350 17 GM Packet PO SCH (09:16)
[2022-09-19] MEDS: Apixaban 5 MG TAB PO SCH ×2 (09:16→20:05)
[2022-09-19] MEDS: Empagliflozin 25 MG TAB PO SCH (09:16)
[2022-09-19] MEDS: Saccharomyces boulardii 250 MG CAP PO SCH (09:16)
[2022-09-19] MEDS: Spironolactone 25 MG TAB PO SCH (09:16)
[2022-09-19] MEDS: Lidocaine 4% Patch TD SCH (09:17)
[2022-09-19] MEDS: HumaLOG 300 UNITS/3 ML VIAL SC SCH ×3 (09:25→20:06)
[2022-09-19] MEDS: DAPTOmycin 500 MG in Sodium Chloride 0.9% 100 ML IVPB SCH (14:49)
[2022-09-19] MEDS: HumaLOG 300 UNITS/3 ML VIAL SC PRN (17:55)
[2022-09-19] MEDS: Atorvastatin Calcium 20 MG TAB PO SCH (20:05)
[2022-09-19] MEDS: DULoxetine 60 MG CAP PO SCH (20:05)
[2022-09-19] MEDS: Insulin Glargine 30 UNITS/0.3 ML VIAL SC SCH (20:07)
[2022-09-19] MEDS: Transdermal Patch Removal TOP SCH (20:08)
[2022-09-19] MEDS ORDERED: Morphine 2 MG/ML VIAL SLOW IVP SCH (21:00)
[2022-09-20] MEDS: HYDROcodone/Acetaminophen 5/325 mg Tablet PO PRN (06:06)
[2022-09-20 06:52] LABS: Anion Gap 18 mmol/L (10-20); BUN (Urea Nitrogen) 29 mg/dL (8.4-25.7); Calc. Creatinine Clearance 64 mL/min (70-130); Calcium 10.4 mg/dL (7.8-10.44); Carbon Dioxide 25 mmol/L (23-31); Chloride 99 mmol/L (98-107); Estimated GFR 46; Glucose 144 mg/dL (83-110); Magnesium 2.4 mg/dL (1.6-2.6); Potassium 4.5 mmol/L (3.5-5.1); Sodium 137 mmol/L (136-145)
[2022-09-20 08:05] VITALS: BP 107/69; TEMP 97.8
[2022-09-20] MEDS: Spironolactone 25 MG TAB PO SCH (08:50)
[2022-09-20] MEDS: Tamsulosin HCl 0.4 MG CAP PO SCH (08:50)
[2022-09-20] MEDS: Docusate 100 MG CAP PO SCH (08:51)
[2022-09-20] MEDS: Empagliflozin 25 MG TAB PO SCH (08:51)
[2022-09-20] MEDS: Polyethylene Glycol 3350 17 GM Packet PO SCH (08:51)
[2022-09-20] MEDS: HumaLOG 300 UNITS/3 ML VIAL SC SCH ×2 (08:51→17:15)
[2022-09-20] MEDS: Saccharomyces boulardii 250 MG CAP PO SCH (08:51)
[2022-09-20] MEDS: Furosemide 20 MG TAB PO SCH ×2 (08:51→13:33)
[2022-09-20] MEDS: Apixaban 5 MG TAB PO SCH (08:52)
[2022-09-20] MEDS: Lidocaine 4% Patch TD SCH (08:52)
[2022-09-20] MEDS: Amiodarone 200 MG TAB PO SCH (08:52)
[2022-09-20] MEDS: DAPTOmycin 500 MG in Sodium Chloride 0.9% 100 ML IVPB SCH (13:33)
[2022-09-20] MEDS: Calcium Carbonate 500 MG ChewTAB PO PRN (17:18)
== END 2022-09-20 18:54 | disposition swing bed (61) | DRG 486 ==
LOC: MSONC 14:00 → T4-B 09-16 14:29
PROVIDERS: ADMIT Family Medicine; ATTEND Internal Medicine
PROC: 0S9C0ZZ Drainage of Right Knee Joint, Open Approach (ICD-10-PCS; principal; 2022-09-06)
PROC: 02HV33Z Insertion of Infusion Device into Superior Vena Cava, Percutaneous Approach (ICD-10-PCS; 2022-09-15)
PROC: B548ZZA Ultrasonography of Superior Vena Cava, Guidance (ICD-10-PCS; 2022-09-15)
DX: M00.9 Pyogenic arthritis, unspecified (principal); I13.0 Hypertensive heart and chronic kidney disease with heart failure and stage 1 through stage 4 chronic kidney disease, or unspecified chronic kidney disease; L03.115 Cellulitis of right lower limb; M25.461 Effusion, right knee; Z20.822 Contact with and (suspected) exposure to COVID-19; J44.9 Chronic obstructive pulmonary disease, unspecified; I25.10 Atherosclerotic heart disease of native coronary artery without angina pectoris; I50.9 Heart failure, unspecified; G47.33 Obstructive sleep apnea (adult) (pediatric); N40.0 Benign prostatic hyperplasia without lower urinary tract symptoms; E66.9 Obesity, unspecified; I48.0 Paroxysmal atrial fibrillation; I25.5 Ischemic cardiomyopathy; E11.618 Type 2 diabetes mellitus with other diabetic arthropathy; E11.22 Type 2 diabetes mellitus with diabetic chronic kidney disease; N18.9 Chronic kidney disease, unspecified; Z95.1 Presence of aortocoronary bypass graft; Z90.09 Acquired absence of other part of head and neck; Z68.34 Body mass index [BMI] 34.0-34.9, adult; Z79.82 Long term (current) use of aspirin; Z79.01 Long term (current) use of anticoagulants; Z79.899 Other long term (current) drug therapy
CPT/HCPCS: 36415; 36416; 36569; 74018; 80048; 80202; 82550; 83036; 83735; 84145; 85025; 85652; 86140; 87070; 87205; 87811; 97139; C1751; J0692; J0878; J1815; J2270; J2272; J2405; J2704; J3010; J3370; J3490; J7050; U0002; U0003; U0005

== ENCOUNTER 2023-08-14 20:48 | Inpatient (IN) | payer OTHER, MEDICARE ==
[2023-08-14 21:31] LABS: Bacteria/HPF 1+ HPF (None Seen); Bilirubin Negative (Negative); Blood, Urine Negative (Negative); CAUTI Indications for Culture Dysuria,urgency,freq; Clarity Clear (Clear); Glucose, Urine (Dipstick) Greater than 1000 mg/dL (Negative); Ketone, Urine Negative (Negative); Leukocyte Negative Leu/uL (Negative); Nitrite Negative (Negative); Protein, Urine (Dipstick) Negative (Neg-Trace); RBC/HPF 0-3 HPF (0-3); Specific Gravity, Urine 1.008 (1.002-1.036); Squamous Epithelial None Seen HPF (0-3); Urobilinogen Normal mg/dL (Less than 2); WBC/HPF 0-3 HPF (0-3)
[2023-08-14 21:32] LABS: Urine Culture Reflex No No
[2023-08-14 21:47] LABS: #Eosinphils 0.1 thou/uL (0.0-0.7); #Monocytes 1.2 thou/uL (0.11-0.59); #Neutrophils 9.6 thou/uL (1.40-6.50); %Basophils 0.3 % (0.0-1.0); %Lymphocytes 11.6 % (21.0-51.0); %Monocytes 9.4 % (0.0-10.0); %Neutrophils 77.2 % (42.0-75.0); Hematocrit 45.8 % (42.0-52.0); Hemoglobin 14.6 g/dL (14.0-18.0); Mean Corpuscular HGB CONC 31.9 g/dL (32.0-36.0); Mean Corpuscular Hemoglobin 29.4 pg (27.0-31.0); Mean Corpuscular Volume 92.2 fl (78.0-98.0); Mean Platelet Volume 10.6 fL (7.4-10.4); Platelet Count 124 10x3/uL (130-400); Red Blood Cell (RBC) Count 4.97 mill/uL (4.70-6.10); White Blood Cell (WBC) Count 12.5 10x3/uL (4.8-10.8)
[2023-08-14 22:10] LABS: ALT (SGPT) 19 U/L (8-55); AST (SGOT) 19 U/L (5-34); Albumin 4.1 g/dL (3.4-4.8); Alkaline Phosphatase 182 U/L (40-110); Anion Gap 14 mmol/L (10-20); BUN (Urea Nitrogen) 38 mg/dL (8.4-25.7); Bilirubin, Total 0.5 mg/dL (0.2-1.2); Calc. Creatinine Clearance 0 mL/min (70-130); Calcium 10.1 mg/dL (7.8-10.44); Carbon Dioxide 32 mmol/L (23-31); Chloride 95 mmol/L (98-107); Estimated GFR 41; Globulin 3.4 g/dL (2.4-3.5); Glucose 236 mg/dL (83-110); Potassium 4.2 mmol/L (3.5-5.1); Protein, Total 7.5 g/dL (5.8-8.1); Sodium 137 mmol/L (136-145)
[2023-08-14 22:14] LABS: Troponin I 0.036 ng/mL (< 0.028)
[2023-08-14] MEDS ORDERED: Ipratropium/Albuterol 3 ML NEB ONE (22:27)
[2023-08-14] MEDS ORDERED: Furosemide 40 MG (4 mL) VIAL ONE (23:32)
[2023-08-14] MEDS ORDERED: Hydrocortisone Sod Succ/PF 100 mg/2 ml Vial ONE (23:32)
[2023-08-14] MEDS ORDERED: Doxycycline 100 MG CAP ONE (23:32)
[2023-08-15 01:05] LABS: Lactic Acid 1.4 mmol/L (0.5-2.2)
[2023-08-15 01:13] LABS: Troponin I 0.026 ng/mL (< 0.028)
[2023-08-15] MEDS ORDERED: Nitroglycerin 0.4 MG TAB (25 Tab Bottle) SL PRN (01:26)
[2023-08-15] MEDS ORDERED: Acetaminophen 325 MG TAB PO PRN (01:30)
[2023-08-15] MEDS ORDERED: cefTRIAXone\\ROCEPHIN 1 GM in Sodium Chloride 0.9% 100 ML IVPB SCH (02:45)
[2023-08-15] MEDS ORDERED: HumaLOG 300 UNITS/3 ML VIAL SC PRN (03:08)
[2023-08-15] MEDS ORDERED: Dextrose 5% in Water 1,000 ML IV PRN (03:08)
[2023-08-15] MEDS ORDERED: Dextrose 50% Abboject 50 ML SYRINGE SLOW IVP PRN (03:08)
[2023-08-15] MEDS ORDERED: Glucagon 1 MG/ML KIT IM PRN (03:08)
[2023-08-15] MEDS ORDERED: Ipratropium/Albuterol 3 ML NEB NEB PRN (03:35)
[2023-08-15] MEDS ORDERED: rOPINIRole HCl 0.5 MG TAB PO SCH ×2 (03:45→21:00)
[2023-08-15] MEDS ORDERED: Acetaminophen 325 MG TAB PO SCH (03:45)
[2023-08-15] MEDS ORDERED: Benzonatate 100 MG CAP PO PRN (03:50)
[2023-08-15] MEDS ORDERED: GUAIFENESIN SF SOLN 200 MG/10 ML UDCUP PO PRN (03:50)
[2023-08-15] MEDS ORDERED: cefTRIAXone (ROCEPHIN) 1 GM VIAL ONE (03:58)
[2023-08-15] MEDS ORDERED: Acetaminophen 325 MG TAB ONE (03:59)
[2023-08-15 04:36] LABS: Hemoglobin A1c 11.8 % (4.0-6.0)
[2023-08-15 04:53] LABS: Cardiac Risk 3.5 (Less than 4.5); Cholesterol 181 mg/dl (< 200 Desired); HDL Cholesterol 52 mg/dL (>60 Neg Risk); LDL Cholesterol, Calculated 103 mg/dL; Magnesium 2.3 mg/dL (1.6-2.6); Triglycerides 132 mg/dL (Less than 150)
[2023-08-15 04:54] LABS: Troponin I 0.027 ng/mL (< 0.028)
[2023-08-15 06:13] LABS: SARS-CoV-2 NAA Rapid Test Not Detected (NotDetected)
[2023-08-15] MEDS ORDERED: Furosemide 20 MG (2 mL) VIAL ONE (07:53)
[2023-08-15] MEDS: Furosemide 40 MG (4 mL) VIAL SLOW IVP SCH ×2 (07:56→15:17)
[2023-08-15 07:59] LABS: Troponin I 0.038 ng/mL (< 0.028)
[2023-08-15] MEDS ORDERED: Liraglutide [Victoza 2-Pak] 0.6 MG/0.1 ML Pen.Injctr SC SCH ×2 (09:00→17:45)
[2023-08-15] MEDS ORDERED: Lisinopril 2.5 MG TAB PO SCH (09:00)
[2023-08-15 09:48] LABS: Anion Gap 17 mmol/L (10-20); BUN (Urea Nitrogen) 35 mg/dL (8.4-25.7); Calc. Creatinine Clearance 0 mL/min (70-130); Calcium 9.7 mg/dL (7.8-10.44); Carbon Dioxide 27 mmol/L (23-31); Chloride 96 mmol/L (98-107); Estimated GFR 41; Glucose 298 mg/dL (83-110); Potassium 4.3 mmol/L (3.5-5.1); Sodium 136 mmol/L (136-145)
[2023-08-15] MEDS ORDERED: Pregabalin 25 MG CAP PO SCH (10:30)
[2023-08-15 10:36] LABS: #Basophils 0.1 thou/uL (0.0-0.2); #Monocytes 1.2 thou/uL (0.11-0.59); #Neutrophils 10.1 thou/uL (1.40-6.50); %Basophils 0.4 % (0.0-1.0); %Eosinophils 0.1 % (0.0-10.0); %Lymphocytes 14.8 % (21.0-51.0); %Monocytes 9.1 % (0.0-10.0); %Neutrophils 75.2 % (42.0-75.0); Hematocrit 46.1 % (42.0-52.0); Hemoglobin 14.5 g/dL (14.0-18.0); Mean Corpuscular HGB CONC 31.5 g/dL (32.0-36.0); Mean Corpuscular Hemoglobin 28.6 pg (27.0-31.0); Mean Corpuscular Volume 90.9 fl (78.0-98.0); Mean Platelet Volume 11.4 fL (7.4-10.4); Platelet Count 135 10x3/uL (130-400); RBC Distribution Width 14.1 % (11.5-14.5); Red Blood Cell (RBC) Count 5.07 mill/uL (4.70-6.10); White Blood Cell (WBC) Count 13.4 10x3/uL (4.8-10.8)
[2023-08-15 10:41] VITALS: BMI 33.9
[2023-08-15] MEDS ORDERED: Doxycycline 100 MG CAP ONE (11:04)
[2023-08-15] MEDS ORDERED: Aspirin 81 mg Enteric Coated Tablet ONE (11:04)
[2023-08-15] MEDS ORDERED: predniSONE 20 MG TAB ONE (11:05)
[2023-08-15] MEDS ORDERED: guaiFENesin ER 600 MG TAB ONE (11:05)
[2023-08-15] MEDS ORDERED: Amiodarone 200 MG TAB ONE (11:05)
[2023-08-15] MEDS ORDERED: Apixaban 5 MG TAB ONE (11:06)
[2023-08-15] MEDS ORDERED: Lisinopril 5 MG TAB ONE (11:06)
[2023-08-15] MEDS: predniSONE 20 MG TAB PO SCH (11:09)
[2023-08-15] MEDS: Apixaban 5 MG TAB PO SCH ×2 (11:11→20:42)
[2023-08-15] MEDS: Amiodarone 200 MG TAB PO SCH (11:11)
[2023-08-15] MEDS: Aspirin 81 mg Enteric Coated Tablet PO SCH (11:12)
[2023-08-15] MEDS: Doxycycline 100 MG CAP PO SCH ×2 (11:13→20:41)
[2023-08-15] MEDS: guaiFENesin ER 600 MG TAB PO SCH ×2 (11:14→20:42)
[2023-08-15] MEDS ORDERED: HumaLOG 300 UNITS/3 ML VIAL ONE (11:59)
[2023-08-15] MEDS ORDERED: HYDROcodone/Acetaminophen 5/325 mg Tablet PO PRN (14:02)
[2023-08-15] MEDS: HumaLOG 300 UNITS/3 ML VIAL SC SCH ×2 (15:05→15:17)
[2023-08-15] MEDS ORDERED: Furosemide 40 MG (4 mL) VIAL ONE (15:14)
[2023-08-15] MEDS: Spironolactone 25 MG TAB PO SCH (15:17)
[2023-08-15] MEDS: Empagliflozin 10 MG TAB PO SCH (15:17)
[2023-08-15] MEDS: Insulin Glargine 30 UNITS/0.3 ML VIAL SC SCH (15:17)
[2023-08-15] MEDS ORDERED: HYDROcodone/Acetaminophen 5/325 mg Tablet ONE (15:46)
[2023-08-15] MEDS: HumaLOG 300 UNITS/3 ML VIAL SC PRN (18:28)
[2023-08-15] MEDS: Pregabalin 25 MG CAP PO SCH (20:41)
[2023-08-15] MEDS: Atorvastatin Calcium 20 MG TAB PO SCH (20:42)
[2023-08-15] MEDS: DULoxetine 60 MG CAP PO SCH (20:42)
[2023-08-15] MEDS: Melatonin 3 MG TAB PO SCH (20:42)
[2023-08-15] MEDS ORDERED: Insulin Glargine 30 UNITS/0.3 ML VIAL SC SCH (21:00)
[2023-08-16] MEDS: cefTRIAXone\\ROCEPHIN 1 GM in Sodium Chloride 0.9% 100 ML IVPB SCH (04:16)
[2023-08-16] MEDS: Furosemide 40 MG (4 mL) VIAL SLOW IVP SCH (04:59)
[2023-08-16] MEDS: HumaLOG 300 UNITS/3 ML VIAL SC PRN ×3 (06:34→16:21)
[2023-08-16] MEDS: Doxycycline 100 MG CAP PO SCH ×2 (09:26→20:25)
[2023-08-16] MEDS: Apixaban 5 MG TAB PO SCH ×2 (09:26→20:25)
[2023-08-16] MEDS: Spironolactone 25 MG TAB PO SCH (09:26)
[2023-08-16] MEDS: predniSONE 20 MG TAB PO SCH (09:27)
[2023-08-16] MEDS: Empagliflozin 10 MG TAB PO SCH (09:28)
[2023-08-16] MEDS: Pregabalin 25 MG CAP PO SCH ×2 (09:28→20:25)
[2023-08-16] MEDS: guaiFENesin ER 600 MG TAB PO SCH ×2 (09:29→20:26)
[2023-08-16] MEDS: Amiodarone 200 MG TAB PO SCH (09:29)
[2023-08-16] MEDS: Aspirin 81 mg Enteric Coated Tablet PO SCH (09:29)
[2023-08-16] MEDS: HumaLOG 300 UNITS/3 ML VIAL SC SCH ×3 (09:30→16:21)
[2023-08-16] MEDS: Insulin Glargine 30 UNITS/0.3 ML VIAL SC SCH (09:30)
[2023-08-16 10:46] LABS: #Monocytes 1.3 thou/uL (0.11-0.59); #Neutrophils 9.9 thou/uL (1.40-6.50); %Basophils 0.3 % (0.0-1.0); %Eosinophils 0.3 % (0.0-10.0); %Lymphocytes 15.4 % (21.0-51.0); %Monocytes 9.8 % (0.0-10.0); %Neutrophils 73.8 % (42.0-75.0); Hematocrit 48.4 % (42.0-52.0); Hemoglobin 15.4 g/dL (14.0-18.0); Mean Corpuscular HGB CONC 31.8 g/dL (32.0-36.0); Mean Corpuscular Hemoglobin 28.8 pg (27.0-31.0); Mean Corpuscular Volume 90.6 fl (78.0-98.0); Mean Platelet Volume 11.1 fL (7.4-10.4); Platelet Count 155 10x3/uL (130-400); RBC Distribution Width 14.1 % (11.5-14.5); Red Blood Cell (RBC) Count 5.34 mill/uL (4.70-6.10); White Blood Cell (WBC) Count 13.4 10x3/uL (4.8-10.8)
[2023-08-16 10:58] LABS: Anion Gap 18 mmol/L (10-20); BUN (Urea Nitrogen) 38 mg/dL (8.4-25.7); Calc. Creatinine Clearance 50 mL/min (70-130); Calcium 10.4 mg/dL (7.8-10.44); Carbon Dioxide 31 mmol/L (23-31); Chloride 95 mmol/L (98-107); Estimated GFR 36; Glucose 267 mg/dL (83-110); Potassium 3.5 mmol/L (3.5-5.1); Sodium 140 mmol/L (136-145)
[2023-08-16] MEDS: HYDROcodone/Acetaminophen 7.5/325 mg Tablet PO PRN ×2 (16:22→20:23)
[2023-08-16 19:06] LABS: Creatinine, Urine 71.32 mg/dL (63-166)
[2023-08-16] MEDS: Melatonin 3 MG TAB PO SCH (20:24)
[2023-08-16] MEDS: DULoxetine 60 MG CAP PO SCH (20:25)
[2023-08-16] MEDS: Atorvastatin Calcium 20 MG TAB PO SCH (20:25)
[2023-08-17] MEDS: HYDROcodone/Acetaminophen 7.5/325 mg Tablet PO PRN ×2 (00:43→21:26)
[2023-08-17] MEDS: cefTRIAXone\\ROCEPHIN 1 GM in Sodium Chloride 0.9% 100 ML IVPB SCH (03:15)
[2023-08-17 05:49] LABS: #Basophils 0.1 thou/uL (0.0-0.2); #Monocytes 1.2 thou/uL (0.11-0.59); #Neutrophils 10.3 thou/uL (1.40-6.50); %Basophils 0.4 % (0.0-1.0); %Eosinophils 0.1 % (0.0-10.0); %Lymphocytes 15.9 % (21.0-51.0); %Monocytes 8.6 % (0.0-10.0); %Neutrophils 74.4 % (42.0-75.0); Hematocrit 48.7 % (42.0-52.0); Hemoglobin 15.4 g/dL (14.0-18.0); Mean Corpuscular HGB CONC 31.6 g/dL (32.0-36.0); Mean Corpuscular Hemoglobin 28.6 pg (27.0-31.0); Mean Corpuscular Volume 90.4 fl (78.0-98.0); Mean Platelet Volume 11.1 fL (7.4-10.4); Platelet Count 161 10x3/uL (130-400); RBC Distribution Width 13.9 % (11.5-14.5); Red Blood Cell (RBC) Count 5.39 mill/uL (4.70-6.10); White Blood Cell (WBC) Count 13.8 10x3/uL (4.8-10.8)
[2023-08-17 06:09] LABS: Anion Gap 14 mmol/L (10-20); BUN (Urea Nitrogen) 42 mg/dL (8.4-25.7); Calc. Creatinine Clearance 63 mL/min (70-130); Calcium 10.2 mg/dL (7.8-10.44); Carbon Dioxide 28 mmol/L (23-31); Chloride 100 mmol/L (98-107); Estimated GFR 47; Glucose 185 mg/dL (83-110); Potassium 3.8 mmol/L (3.5-5.1); Sodium 138 mmol/L (136-145)
[2023-08-17] MEDS ORDERED: Polyethylene Glycol 3350 17 GM Packet PO SCH (09:45)
[2023-08-17] MEDS: HumaLOG 300 UNITS/3 ML VIAL SC SCH ×3 (13:32→18:15)
[2023-08-17] MEDS: HumaLOG 300 UNITS/3 ML VIAL SC PRN ×2 (13:33→23:45)
[2023-08-17] MEDS: Insulin Glargine 30 UNITS/0.3 ML VIAL SC SCH (18:10)
[2023-08-17] MEDS: Amiodarone 200 MG TAB PO SCH (18:10)
[2023-08-17] MEDS: Aspirin 81 mg Enteric Coated Tablet PO SCH (18:10)
[2023-08-17] MEDS: Empagliflozin 10 MG TAB PO SCH (18:10)
[2023-08-17] MEDS: Doxycycline 100 MG CAP PO SCH ×2 (18:10→21:25)
[2023-08-17] MEDS: Apixaban 5 MG TAB PO SCH ×2 (18:10→21:24)
[2023-08-17] MEDS: guaiFENesin ER 600 MG TAB PO SCH ×2 (18:10→21:25)
[2023-08-17] MEDS: Spironolactone 25 MG TAB PO SCH (18:11)
[2023-08-17] MEDS: Pregabalin 25 MG CAP PO SCH ×2 (18:11→21:25)
[2023-08-17] MEDS: Melatonin 3 MG TAB PO SCH (21:24)
[2023-08-17] MEDS: DULoxetine 60 MG CAP PO SCH (21:25)
[2023-08-17] MEDS: Atorvastatin Calcium 20 MG TAB PO SCH (21:25)
[2023-08-17] MEDS: Sacubitril 24MG/Valsartan 26 MG TAB PO SCH (21:26)
[2023-08-18] MEDS: cefTRIAXone\\ROCEPHIN 1 GM in Sodium Chloride 0.9% 100 ML IVPB SCH (04:23)
[2023-08-18] MEDS: HumaLOG 300 UNITS/3 ML VIAL SC PRN (06:47)
[2023-08-18 07:27] LABS: Albumin 3.8 g/dL (3.4-4.8); Anion Gap 13 mmol/L (10-20); BUN (Urea Nitrogen) 40 mg/dL (8.4-25.7); BUN/Creatinine Ratio 26.85; Calc. Creatinine Clearance 61 mL/min (70-130); Calcium 10.1 mg/dL (7.8-10.44); Carbon Dioxide 26 mmol/L (23-31); Chloride 102 mmol/L (98-107); Estimated GFR 48; Glucose 205 mg/dL (83-110); Phosphorus 3.7 mg/dL (2.3-4.7); Potassium 4.4 mmol/L (3.5-5.1); Sodium 137 mmol/L (136-145)
[2023-08-18] MEDS ORDERED: Polyethylene Glycol 3350 17 GM Packet PO SCH (09:00)
[2023-08-18] MEDS ORDERED: Insulin Glargine 30 UNITS/0.3 ML VIAL SC SCH (09:00)
[2023-08-18] MEDS: HYDROcodone/Acetaminophen 7.5/325 mg Tablet PO PRN ×2 (09:06→16:02)
[2023-08-18] MEDS: Amiodarone 200 MG TAB PO SCH (09:08)
[2023-08-18] MEDS: Empagliflozin 10 MG TAB PO SCH (09:08)
[2023-08-18] MEDS: Sacubitril 24MG/Valsartan 26 MG TAB PO SCH (09:08)
[2023-08-18] MEDS: Apixaban 5 MG TAB PO SCH (09:08)
[2023-08-18] MEDS: Aspirin 81 mg Enteric Coated Tablet PO SCH (09:08)
[2023-08-18] MEDS: Doxycycline 100 MG CAP PO SCH (09:08)
[2023-08-18] MEDS: Pregabalin 25 MG CAP PO SCH (09:08)
[2023-08-18] MEDS: Spironolactone 25 MG TAB PO SCH (09:08)
[2023-08-18] MEDS: guaiFENesin ER 600 MG TAB PO SCH (09:09)
[2023-08-18 15:42] VITALS: BP 104/71; TEMP 98.4
== END 2023-08-18 20:48 | disposition home or self-care (01) | DRG 177 ==
LOC: ERS 20:48 → ERHOLD 08-15 01:22 → UNDOADMOB 08-15 01:22 → OBSVTOIN 08-15 03:58 → 2SW 08-15 03:58 → INTOOBSV 08-15 03:58 → 2SW 08-15 17:02 → ERHOLD 08-15 17:02 → UNDODISIN 08-15 17:40 → 2SW 08-15 17:49 → OBSVTOIN 08-15 17:49 → INTOOBSV 08-15 17:49 → UNDOADMOB 08-15 17:49
PROVIDERS: ADMIT Family Medicine; ATTEND Internal Medicine
DX: J15.69 Pneumonia due to other Gram-negative bacteria (principal); I50.23 Acute on chronic systolic (congestive) heart failure; I13.0 Hypertensive heart and chronic kidney disease with heart failure and stage 1 through stage 4 chronic kidney disease, or unspecified chronic kidney disease; J44.1 Chronic obstructive pulmonary disease with (acute) exacerbation; N17.9 Acute kidney failure, unspecified; E87.3 Alkalosis; I48.91 Unspecified atrial fibrillation; Z79.01 Long term (current) use of anticoagulants; I25.10 Atherosclerotic heart disease of native coronary artery without angina pectoris; G25.81 Restless legs syndrome; E11.22 Type 2 diabetes mellitus with diabetic chronic kidney disease; I25.5 Ischemic cardiomyopathy; G89.4 Chronic pain syndrome; E66.9 Obesity, unspecified; E03.9 Hypothyroidism, unspecified; N18.32 Chronic kidney disease, stage 3b; E11.65 Type 2 diabetes mellitus with hyperglycemia; R53.1 Weakness; E11.40 Type 2 diabetes mellitus with diabetic neuropathy, unspecified; Z90.89 Acquired absence of other organs; Z95.0 Presence of cardiac pacemaker; Z79.899 Other long term (current) drug therapy; Z95.1 Presence of aortocoronary bypass graft; I69.362 Other paralytic syndrome following cerebral infarction affecting left dominant side; Z79.51 Long term (current) use of inhaled steroids; Z79.82 Long term (current) use of aspirin; Z98.890 Other specified postprocedural states; Z87.891 Personal history of nicotine dependence; Z79.4 Long term (current) use of insulin; F39 Unspecified mood [affective] disorder; I45.81 Long QT syndrome; Z11.52 Encounter for screening for COVID-19; R53.81 Other malaise; E87.6 Hypokalemia; D69.6 Thrombocytopenia, unspecified; Z68.31 Body mass index [BMI] 31.0-31.9, adult
CPT/HCPCS: 36415; 36416; 71045; 71046; 76770; 80048; 80053; 80061; 80069; 81001; 82570; 83036; 83605; 83735; 83880; 84156; 84300; 84443; 84484; 84540; 85025; 93005; 93306; 94640; 96374; 96375; J0696; J1720; J1815; J1940; J3490; J7512; J7620

== ENCOUNTER 2023-09-02 16:54 | Emergency (ER) | payer MEDICARE, OTHER ==
[2023-09-02 17:57] LABS: Magnesium 2.1 mg/dL (1.6-2.6)
[2023-09-02 18:00] LABS: Troponin I 0.026 ng/mL (< 0.028)
[2023-09-02] MEDS ORDERED: Furosemide 40 MG (4 mL) VIAL ONE (19:29)
== END 2023-09-02 20:37 | disposition home or self-care (01) ==
LOC: ERS 16:54
DX: I50.9 Heart failure, unspecified (principal); E11.9 Type 2 diabetes mellitus without complications; J44.9 Chronic obstructive pulmonary disease, unspecified; Z79.01 Long term (current) use of anticoagulants; Z79.899 Other long term (current) drug therapy
CPT/HCPCS: 36415; 83735; 84484; 93005; 96374; J1940

== ENCOUNTER 2023-12-16 07:53 | Day surgery (SDC) | payer OTHER ==
[2023-12-15 15:19] VITALS: BMI 34.0
[2023-12-15 16:21] LABS: Hematocrit 45.8 % (38.8-50.0); Hemoglobin 14.9 g/dL (13.5-17.5); Mean Corpuscular HGB CONC 32.5 g/dL (32.0-36.0); Mean Corpuscular Hemoglobin 29.4 pg (27.0-33.0); Mean Corpuscular Volume 90.5 fl (81.2-95.1); Mean Platelet Volume 11.7 fl (7.4-10.4); Platelet Count 135 10x3/uL (150-450); RBC Distribution Width 14.6 % (11.5-14.5); Red Blood Cell (RBC) Count 5.06 10x6/uL (4.32-5.72); White Blood Cell (WBC) Count 11.9 10x3/uL (3.5-10.5)
[2023-12-15 16:55] LABS: PTT 28.1 sec (22.0-33.0); Prothrombin Time 10.9 sec (9.5-12.1)
[2023-12-15 16:58] LABS: Anion Gap 20 mmol/L (10-20); BUN (Urea Nitrogen) 43 mg/dL (8.4-25.7); Calc. Creatinine Clearance 59 mL/min (70-130); Calcium 10.4 mg/dL (7.8-10.44); Carbon Dioxide 28 mmol/L (23-31); Chloride 92 mmol/L (98-107); Estimated GFR 42; Glucose 203 mg/dL (83-110); Sodium 136 mmol/L (136-145)
[2023-12-16] MEDS ORDERED: Etomidate 40 MG (20 mL) VIAL ONE (11:28)
[2023-12-16] MEDS ORDERED: Midazolam HCl 2 mg/2 ml Vial ONE (11:28)
== END 2023-12-16 13:15 | disposition home or self-care (01) ==
LOC: SDC 07:53
PROVIDERS: ATTEND Internal Medicine Cardiovascular Disease
PROC: 5A2204Z Restoration of Cardiac Rhythm, Single (ICD-10-PCS; principal; 2023-12-16)
PROC: B246ZZ4 Ultrasonography of Right and Left Heart, Transesophageal (ICD-10-PCS; principal; 2023-12-16)
DX: I48.19 Other persistent atrial fibrillation (principal); I08.1 Rheumatic disorders of both mitral and tricuspid valves; E11.22 Type 2 diabetes mellitus with diabetic chronic kidney disease; I13.0 Hypertensive heart and chronic kidney disease with heart failure and stage 1 through stage 4 chronic kidney disease, or unspecified chronic kidney disease; I50.22 Chronic systolic (congestive) heart failure; N18.2 Chronic kidney disease, stage 2 (mild); E78.5 Hyperlipidemia, unspecified; I25.10 Atherosclerotic heart disease of native coronary artery without angina pectoris; I47.20 Ventricular tachycardia, unspecified; K21.9 Gastro-esophageal reflux disease without esophagitis; E66.09 Other obesity due to excess calories; Z68.34 Body mass index [BMI] 34.0-34.9, adult; Z87.891 Personal history of nicotine dependence; Z95.810 Presence of automatic (implantable) cardiac defibrillator; Z95.1 Presence of aortocoronary bypass graft; Z79.01 Long term (current) use of anticoagulants; Z79.899 Other long term (current) drug therapy
CPT/HCPCS: 80048; 85027; 85610; 85730; 92960; 93312; J2250

== ENCOUNTER 2024-06-01 09:36 | Inpatient (IN) | payer MEDICARE, OTHER ==
[2024-06-01] MEDS ORDERED: Cefepime 2 GM VIAL ONE (10:15)
[2024-06-01] MEDS ORDERED: Sodium Chloride 0.9% 100 ML ONE (10:15)
[2024-06-01 10:30] LABS: #Basophils 0.04 10x3/uL (0.0-0.2); #Eosinophils Less than 0.03 10x3/uL (0.0-0.7); %Basophils 0.2 % (0.0-1.0); %Lymphocytes 1.2 % (21.0-51.0); %Monocytes 1.9 % (0.0-10.0); %Neutrophils 95.4 % (42.0-75.0); Hematocrit 48.1 % (42.0-52.0); Hemoglobin 15.3 g/dL (14.0-18.0); Mean Corpuscular HGB CONC 31.8 g/dL (32.0-36.0); Mean Corpuscular Hemoglobin 29.4 pg (27.0-31.0); Mean Corpuscular Volume 92.5 fL (78.0-98.0); Platelet Count 97 10x3/uL (130-400); RBC Distribution Width 15.6 % (11.5-14.5)
[2024-06-01 10:31] LABS: Bacteria/HPF None Seen HPF (None Seen); Bilirubin Negative (Negative); Blood, Urine 3+ (Negative); CAUTI Indications for Culture Fever or rigors; Clarity Clear (Clear); Glucose, Urine (Dipstick) Greater than 1000 mg/dL (Negative); Ketone, Urine 20 mg/dL (Negative); Leukocyte Negative Leu/uL (Negative); Nitrite Negative (Negative); Protein, Urine (Dipstick) 30 mg/dL (Neg-Trace); RBC/HPF 0-3 HPF (0-3); Specific Gravity, Urine 1.025 (1.002-1.036); Squamous Epithelial 0-3 HPF (0-3); Urine Culture Reflex No No; Urobilinogen Normal mg/dL (Less than 2); WBC/HPF 0-3 HPF (0-3); pH, Urine 5.5 (5.0-9.0)
[2024-06-01 10:34] LABS: Amphetamine Not Detected (NotDetected); Barbiturates Screen Not Detected (NotDetected); Benzodiazepine Screen Not Detected (NotDetected); Cocaine Metabolite Screen Not Detected (NotDetected); Methadone Not Detected (NotDetected); Methamphetamine Not Detected (NotDetected); Opiate Screen Detected (NotDetected); Oxycodone Screen Not Detected (NotDetected); Phencyclidine (PCP) Not Detected (NotDetected); THC/Cannabinoid Screen Not Detected (NotDetected); Tricyclic Screen Not Detected (NotDetected)
[2024-06-01] MEDS ORDERED: Acetaminophen 650 MG Suppository ONE (10:37)
[2024-06-01 10:39] LABS: PTT 32.8 sec (22.9-36.1)
[2024-06-01 10:40] LABS: INR-International Normal Ratio 1.3; Prothrombin Time 16.2 sec (12.0-14.7)
[2024-06-01 10:41] LABS: D-Dimer Test 2.1 mcg/mL (0.27-0.43)
[2024-06-01 10:42] LABS: ALT (SGPT) 49 U/L (8-55); AST (SGOT) 79 U/L (5-34); Albumin 3.5 g/dL (3.4-4.8); Alkaline Phosphatase 107 U/L (40-110); Anion Gap 22 mmol/L (10-20); BUN (Urea Nitrogen) 30 mg/dL (8.4-25.7); CK (CPK) 2142 U/L (30-200); Calc. Creatinine Clearance 0 mL/min (70-130); Calcium 9.9 mg/dL (7.8-10.44); Carbon Dioxide 21 mmol/L (23-31); Chloride 101 mmol/L (98-107); Estimated GFR 32; Globulin 4.1 g/dL (2.4-3.5); Glucose 339 mg/dL (83-110); Lipase 9 U/L (8-78); Magnesium 1.7 mg/dL (1.6-2.6); Potassium 4.9 mmol/L (3.5-5.1); Protein, Total 7.6 g/dL (5.8-8.1); Sodium 139 mmol/L (136-145)
[2024-06-01 10:46] LABS: Troponin I 0.105 ng/mL (< 0.028)
[2024-06-01 10:51] LABS: CRP,High Sensitivity (Inhouse) 17.28 mg/dL (< or = 0.5)
[2024-06-01 11:21] LABS: Platelet Adequacy Comment Platelets Decreased; RBC Morphology Within Normal Limits
[2024-06-01] MEDS ORDERED: Amiodarone 150 MG/3 ML VIAL ONE (11:21)
[2024-06-01 12:18] LABS: Acetaminophen Less than 10 mcg/mL (Less than 10); Alcohol Less than 10.0 mg/dL (Less than 10); Salicylate Less than 8.0 mg/dL (Less than 8.0)
[2024-06-01] MEDS ORDERED: Ketamine In 0.9 % NaCl 50 MG/5 ML SYRINGE ONE (12:53)
[2024-06-01] MEDS ORDERED: Rocuronium Bromide 10 MG/ML (10ML VIAL) ONE ×2 (12:54→13:12)
[2024-06-01] MEDS ORDERED: EPINEPHrine 1 MG/10 ML Abboject SYRINGE ONE (13:06)
[2024-06-01] MEDS ORDERED: NOREPINEPHRINE 8 MG/250 ML-D5W 250 ML ONE (13:20)
[2024-06-01] MEDS ORDERED: Ventilator Sedation Protocol 1 EACH FS SCH (13:55)
[2024-06-01] MEDS ORDERED: Acetaminophen 650 MG Suppository PR PRN (13:55)
[2024-06-01] MEDS ORDERED: Senokot S 8.6-50 MG TAB PO PRN (13:55)
[2024-06-01] MEDS ORDERED: Ondansetron PF 4 MG/2 ML Vial IVP PRN (13:55)
[2024-06-01] MEDS ORDERED: Calcium Carbonate 500 MG ChewTAB PO PRN (13:55)
[2024-06-01 14:05] LABS: Lactic Acid 3.97 mmol/L (0.5-2.2)
[2024-06-01] MEDS ORDERED: INSULIN REGULAR IN 0.9 % NACL 100 ML ONE (14:07)
[2024-06-01 14:20] LABS: Analyzer IN Cardio ER; Base Excess (BEa) -3.3 mEq/L (-2.0 to +3.0); CO2 Tension 35.7 mmHg (35.0-45.0); Calcium, Ionized (arterial) 1.19 mmol/L (1.12-1.30); Carboxyhemoglobin (COHb) 0.7 gm% (0.0-3.0); Hematocrit-ABG 42 % (42.0-52.0); Hemoglobin (Hb) 14.2 g/dL (14.0-18.0); O2 Tension (PaO2), arterial 83.1 mmHg (> 70.0); Potassium - ABG Lab 4.31 mmol/L (3.70-5.30); pH, Arterial 7.388 (7.35-7.45)
[2024-06-01 14:24] LABS: ALV-art Gradient 585.275 mmHg (0-20); Puncture Site Left Radial artery
[2024-06-01] MEDS ORDERED: Morphine 2 MG/ML VIAL SLOW IVP PRN (14:30)
[2024-06-01] MEDS ORDERED: Dextrose 5% in Water 1,000 ML IV PRN ×3 (14:30→21:45)
[2024-06-01] MEDS ORDERED: Glucagon 1 MG/ML KIT IM PRN ×2 (14:30→17:45)
[2024-06-01] MEDS ORDERED: DISCONTINUE PREVIOUS NARCOTIC PAIN MEDICATIONS AND BENZODIAZEPINES FS SCH (14:30)
[2024-06-01] MEDS ORDERED: Dextrose 50% Abboject 50 ML SYRINGE SLOW IVP PRN ×2 (14:30→17:45)
[2024-06-01] MEDS ORDERED: Propofol BOLUS 1,000 MG/100 ML VIAL IV PRN (14:30)
[2024-06-01] MEDS ORDERED: Fentanyl BOLUS 250 ML IVPB PRN (14:30)
[2024-06-01] MEDS ORDERED: Iopamidol-370 76% 500 ML MDV (1 ML CHARGE) ONE (14:48)
[2024-06-01 16:15] LABS: Troponin I 0.177 ng/mL (< 0.028)
[2024-06-01] MEDS: Cefepime 2 GM in Sodium Chloride 0.9% 100 ML IVPB SCH (16:30)
[2024-06-01] MEDS: Clindamycin/D5W 900 MG in Premix 1 BAG IVPB SCH (16:30)
[2024-06-01] MEDS: Vancomycin (BATCH) 2 GM in Premix 1 BAG IVPB SCH (16:30)
[2024-06-01] MEDS: Lactated Ringer's 1,000 ML IV SCH ×2 (16:30→21:51)
[2024-06-01] MEDS: Acetaminophen 325 MG TAB PO PRN (17:15)
[2024-06-01] MEDS: Albumin 25% 25 GM (100 mL) BOT IVPB SCH (17:35)
[2024-06-01] MEDS: Dexmedetomidine In 0.9 % NaCl 100 ML IVPB SCH (17:35)
[2024-06-01] MEDS: INSULIN REGULAR IN 0.9 % NACL 100 ML IVPB SCH (17:35)
[2024-06-01] MEDS ORDERED: Dextrose 5 %-0.45 % NaCl 1,000 ML IV PRN (17:45)
[2024-06-01] MEDS ORDERED: NS 0.9% w/ 20 MEQ KCL 1,000 ML/1,000 ML BAG IV PRN (17:45)
[2024-06-01] MEDS ORDERED: INSULIN REGULAR IN 0.9 % NACL 100 UNITS in Premix 1 BAG IVPB SCH (17:45)
[2024-06-01] MEDS ORDERED: Sodium Chloride 0.9% 1,000 ML IV PRN ×4 (17:45)
[2024-06-01] MEDS ORDERED: Insulin Reg, Human 100 UNITS in Sodium Chloride 0.9% 100 ML IVPB SCH (17:45)
[2024-06-01] MEDS: NS 0.9% w/ 20 MEQ KCL 1,000 ML/1,000 ML BAG IV PRN (17:45)
[2024-06-01] MEDS ORDERED: Electrolyte Replacement Protocol FS PRN (18:00)
[2024-06-01] MEDS: Amiodarone 450 MG, Admixture Fee 1 EACH in Dextrose 5% in Water 250 ML IVPB SCH (18:00)
[2024-06-01 18:09] LABS: Anion Gap 15 mmol/L (10-20); BUN (Urea Nitrogen) 32 mg/dL (8.4-25.7); Calc. Creatinine Clearance 55 mL/min (70-130); Calcium 8.9 mg/dL (7.8-10.44); Carbon Dioxide 23 mmol/L (23-31); Chloride 108 mmol/L (98-107); Estimated GFR 38; Glucose 219 mg/dL (83-110); Potassium 4.1 mmol/L (3.5-5.1); Sodium 142 mmol/L (136-145)
[2024-06-01] MEDS: NOREPINEPHRINE 8 MG/250 ML-D5W 250 ML IVPB SCH (18:20)
[2024-06-01 18:22] LABS: Critical Call Chem Troponin I NUR.LEW1; Troponin I 0.205 ng/mL (< 0.028)
[2024-06-01] MEDS: D5 1/2 NS w/20 mEq KCL 1,000 ML IV PRN (19:52)
[2024-06-01] MEDS: Lorazepam 2 MG/ML VIAL SLOW IVP PRN (19:58)
[2024-06-01 20:41] LABS: Lactic Acid 2.77 mmol/L (0.5-2.2)
[2024-06-01] MEDS: Fentanyl CADD 100 ML IV SCH (20:51)
[2024-06-01] MEDS: Magnesium 2 GM/50 ML(in water) 2 GM in Premix 1 BAG IVPB SCH (21:30)
[2024-06-01] MEDS: Cefepime 1 GM in Sodium Chloride 0.9% 100 ML IVPB SCH (21:31)
[2024-06-02 04:10] LABS: Hematocrit 44.4 % (42.0-52.0); Hemoglobin 14.1 g/dL (14.0-18.0); Lactic Acid 1.91 mmol/L (0.5-2.2); Mean Corpuscular HGB CONC 31.8 g/dL (32.0-36.0); Mean Corpuscular Hemoglobin 29.6 pg (27.0-31.0); Mean Corpuscular Volume 93.3 fL (78.0-98.0); Mean Platelet Volume 11.4 fL (7.4-10.4); Platelet Count 70 10x3/uL (130-400); Red Blood Cell (RBC) Count 4.76 mill/uL (4.70-6.10)
[2024-06-02 04:11] LABS: Vancomycin, Random 13.8 ug/mL (See Comment)
[2024-06-02 04:24] LABS: ALT (SGPT) 49 U/L (8-55); AST (SGOT) 96 U/L (5-34); Albumin 3.1 g/dL (3.4-4.8); Alkaline Phosphatase 62 U/L (40-110); Anion Gap 19 mmol/L (10-20); BUN (Urea Nitrogen) 36 mg/dL (8.4-25.7); Bilirubin, Total 0.8 mg/dL (0.2-1.2); Calc. Creatinine Clearance 63 mL/min (70-130); Calcium 8.6 mg/dL (7.8-10.44); Carbon Dioxide 19 mmol/L (23-31); Chloride 108 mmol/L (98-107); Estimated GFR 45; Glucose 188 mg/dL (83-110); Magnesium 2.3 mg/dL (1.6-2.6); Protein, Total 6.1 g/dL (5.8-8.1); Sodium 141 mmol/L (136-145)
[2024-06-02 04:57] LABS: Anisocytosis SLIGHT = 6-15 cells HPF (0-5); Band 38 % (5-11); Dohle Bodies SLIGHT; Lymphocytes 3 % (21-51); Metamyelocyte 6 % (0-0); Monocytes 2 % (0-10); Myelocyte 1 % (0-0); Neutrophil 51 % (42-75); Platelet Adequacy Comment Platelets Decreased; Polychromasia SLIGHT = 2-3 cells HPF (0-2); Target Cells SLIGHT = 2-5 cells HPF (0-1)
[2024-06-02] MEDS: Levothyroxine Sodium 25 MCG TAB PER TUBE SCH (05:20)
[2024-06-02] MEDS: Pantoprazole 40 MG VIAL IVP SCH (08:00)
[2024-06-02] MEDS ORDERED: Amiodarone 200 MG TAB PER TUBE SCH (09:00)
[2024-06-02] MEDS ORDERED: Acidophilus Lactiobac CAPSULE PER TUBE SCH (09:00)
[2024-06-02] MEDS: Perflutren Lipid Microspheres 1.1 MG/ML VIAL ONE (09:09)
[2024-06-02] MEDS: Floranex 1 GM Packet PER TUBE SCH (09:15)
[2024-06-02] MEDS: Clindamycin/D5W 900 MG in Premix 1 BAG IVPB SCH (09:15)
[2024-06-02] MEDS: Insulin Lispro 100 UNIT/ML 10 ML VIAL SC PRN (10:00)
[2024-06-02 10:29] VITALS: BMI 38.5
[2024-06-02] MEDS: Vancomycin (BATCH) 1.25 GM in Premix 1 BAG IVPB SCH (11:10)
[2024-06-02] MEDS: cefTRIAXone\\ROCEPHIN 2 GM in Sodium Chloride 0.9% 100 ML IVPB SCH (13:00)
[2024-06-02 17:42] LABS: Calcium, Ionized (venous) 1.09 mmol/L (1.16-1.32); Chloride (VBG) 106 mmol/L (98-106); Hematocrit-VBG 43 % (42.0-52.0); Hemoglobin (Hb) 14.5 g/dL (12.6-17.4); Potassium (VBG) 4.65 mmol/L (3.70-5.30); Sodium 140 mmol/L (133-146); pH (venous) 7.275 (7.32-7.43)
[2024-06-02] MEDS: Apixaban 5 MG TAB PER TUBE SCH (21:33)
[2024-06-03] MEDS: Propofol 1,000 MG/100 ML VIAL IV PRN (01:47)
[2024-06-03 04:16] LABS: Hematocrit 43.1 % (42.0-52.0); Hemoglobin 13.8 g/dL (14.0-18.0); Mean Corpuscular Hemoglobin 29.2 pg (27.0-31.0); Mean Corpuscular Volume 91.1 fL (78.0-98.0); Mean Platelet Volume 12.7 fL (7.4-10.4); Platelet Count 63 10x3/uL (130-400); RBC Distribution Width 16.6 % (11.5-14.5); Red Blood Cell (RBC) Count 4.73 mill/uL (4.70-6.10)
[2024-06-03 04:38] LABS: ALT (SGPT) 59 U/L (8-55); AST (SGOT) 90 U/L (5-34); Albumin 2.8 g/dL (3.4-4.8); Alkaline Phosphatase 60 U/L (40-110); Anion Gap 13 mmol/L (10-20); BUN (Urea Nitrogen) 45 mg/dL (8.4-25.7); Bilirubin, Total 0.6 mg/dL (0.2-1.2); Calc. Creatinine Clearance 51 mL/min (70-130); Calcium 8.3 mg/dL (7.8-10.44); Carbon Dioxide 21 mmol/L (23-31); Chloride 108 mmol/L (98-107); Estimated GFR 34; Globulin 2.7 g/dL (2.4-3.5); Glucose 238 mg/dL (83-110); Magnesium 2.1 mg/dL (1.6-2.6); Potassium 4.8 mmol/L (3.5-5.1); Protein, Total 5.5 g/dL (5.8-8.1); Sodium 137 mmol/L (136-145)
[2024-06-03 05:50] LABS: Anisocytosis SLIGHT = 6-15 cells HPF (0-5); Band 36 % (5-11); Lymphocytes 1 % (21-51); Monocytes 3 % (0-10); Neutrophil 60 % (42-75); Platelet Adequacy Comment Platelets Decreased; Polychromasia SLIGHT = 2-3 cells HPF (0-2)
[2024-06-03] MEDS: Furosemide 40 MG (4 mL) VIAL ONE (11:23)
[2024-06-03] MEDS: Metoclopramide HCl 10 MG (2 mL) VIAL IVP SCH (11:23)
[2024-06-03] MEDS: Furosemide 40 MG (4 mL) VIAL SLOW IVP SCH (12:18)
[2024-06-03] MEDS: DC Sedation Protocol FS ONE (18:13)
[2024-06-03] MEDS: Haloperidol Lactate 5 MG/ML VIAL SLOW IVP PRN (19:51)
[2024-06-03] MEDS: Insulin Glargine 30 UNITS/0.3 ML VIAL SC SCH (19:51)
[2024-06-03 22:46] LABS: Actual Bicarbonate (HCO3a) 21.7 mEq/L (22-28); Base Excess (BEa) -3.7 mEq/L (-2.0 to +3.0); CO2 Tension 40.8 mmHg (35.0-45.0); Hematocrit-ABG 42 % (42.0-52.0); Hemoglobin (Hb) 14.3 g/dL (14.0-18.0); O2 Tension (PaO2), arterial 97.3 mmHg (> 70.0); Potassium - ABG Lab 4.43 mmol/L (3.70-5.30); pH, Arterial 7.344 (7.35-7.45)
[2024-06-03 22:47] LABS: Puncture Site Right Radial artery
[2024-06-04 03:55] LABS: #Basophils 0.05 10x3/uL (0.0-0.2); #Eosinophils Less than 0.03 10x3/uL (0.0-0.7); %Basophils 0.3 % (0.0-1.0); %Eosinophils 0.1 % (0.0-10.0); %Lymphocytes 4.5 % (21.0-51.0); %Monocytes 3.9 % (0.0-10.0); %Neutrophils 90.6 % (42.0-75.0); Hematocrit 39.7 % (42.0-52.0); Hemoglobin 12.9 g/dL (14.0-18.0); Mean Corpuscular HGB CONC 32.5 g/dL (32.0-36.0); Mean Corpuscular Hemoglobin 29.3 pg (27.0-31.0); Mean Platelet Volume 11.7 fL (7.4-10.4); Platelet Count 63 10x3/uL (130-400); RBC Distribution Width 16.7 % (11.5-14.5); Red Blood Cell (RBC) Count 4.41 mill/uL (4.70-6.10)
[2024-06-04 04:19] LABS: ALT (SGPT) 58 U/L (8-55); AST (SGOT) 86 U/L (5-34); Albumin 2.7 g/dL (3.4-4.8); Alkaline Phosphatase 82 U/L (40-110); Anion Gap 16 mmol/L (10-20); BUN (Urea Nitrogen) 48 mg/dL (8.4-25.7); Bilirubin, Total 0.8 mg/dL (0.2-1.2); Calc. Creatinine Clearance 54 mL/min (70-130); Calcium 8.8 mg/dL (7.8-10.44); Carbon Dioxide 21 mmol/L (23-31); Chloride 109 mmol/L (98-107); Estimated GFR 36; Globulin 3.2 g/dL (2.4-3.5); Glucose 213 mg/dL (83-110); Potassium 4.5 mmol/L (3.5-5.1); Protein, Total 5.9 g/dL (5.8-8.1); Sodium 141 mmol/L (136-145)
[2024-06-04] MEDS: Furosemide 40 MG (4 mL) VIAL SLOW IVP SCH (08:23)
[2024-06-04] MEDS: Haloperidol Lactate 5 MG/ML VIAL SLOW IVP SCH (09:12)
[2024-06-04] MEDS: fentaNYL 50 mcg/mL 1 mL Vial SLOW IVP SCH (11:12)
[2024-06-04] MEDS: Etomidate 40 MG (20 mL) VIAL IVP SCH (11:13)
[2024-06-04] MEDS ORDERED: Propofol BOLUS 1,000 MG/100 ML VIAL IV PRN (11:15)
[2024-06-04] MEDS ORDERED: Fentanyl BOLUS 250 ML IVPB PRN (11:15)
[2024-06-04] MEDS ORDERED: DISCONTINUE PREVIOUS NARCOTIC PAIN MEDICATIONS AND BENZODIAZEPINES FS SCH (11:15)
[2024-06-04] MEDS ORDERED: Morphine 2 MG/ML VIAL SLOW IVP PRN (11:15)
[2024-06-04] MEDS: Propofol 1,000 MG/100 ML VIAL IV PRN (11:20)
[2024-06-04] MEDS: Fentanyl CADD 100 ML IV SCH (11:20)
[2024-06-04] MEDS ORDERED: Etomidate 40 MG (20 mL) VIAL ONE (11:21)
[2024-06-04 12:25] LABS: Base Excess (BEa) -8.6 mEq/L (-2.0 to +3.0); CO2 Tension 35.7 mmHg (35.0-45.0); Carboxyhemoglobin (COHb) 1.3 gm% (0.0-3.0); Hematocrit-ABG 42 % (42.0-52.0); Hemoglobin (Hb) 14.4 g/dL (14.0-18.0); Potassium - ABG Lab 4.62 mmol/L (3.70-5.30); pH, Arterial 7.295 (7.35-7.45)
[2024-06-04 12:28] LABS: ALV-art Gradient 557.375 mmHg (0-20); Puncture Site Right Radial artery
[2024-06-04] MEDS: fentaNYL 50 mcg/mL 1 mL Vial ONE (12:29)
[2024-06-04] MEDS: Propofol 1,000 MG/100 ML VIAL IV ONE (12:30)
[2024-06-04] MEDS: Fentanyl CADD 100 ML ONE (12:30)
[2024-06-04] MEDS: QUEtiapine 25 MG TAB PO SCH (19:37)
[2024-06-04] MEDS: Lorazepam 2 MG/ML VIAL SLOW IVP PRN (19:37)
[2024-06-04] MEDS: FLU (Fluad Triv) TS24-25 (65UP)/MF59C/PF 45 MCG/0.5 ML Syringe IM ONE (19:39)
[2024-06-05 04:52] LABS: Anion Gap 13 mmol/L (10-20); BUN (Urea Nitrogen) 51 mg/dL (8.4-25.7); Calc. Creatinine Clearance 51 mL/min (70-130); Calcium 8.8 mg/dL (7.8-10.44); Carbon Dioxide 22 mmol/L (23-31); Chloride 111 mmol/L (98-107); Estimated GFR 35; Glucose 212 mg/dL (83-110); Potassium 3.9 mmol/L (3.5-5.1); Sodium 142 mmol/L (136-145)
[2024-06-05 05:24] LABS: #Basophils 0.04 10x3/uL (0.0-0.2); %Basophils 0.3 % (0.0-1.0); %Eosinophils 1.1 % (0.0-10.0); %Lymphocytes 9.2 % (21.0-51.0); %Monocytes 5.4 % (0.0-10.0); %Neutrophils 82.7 % (42.0-75.0); Hematocrit 37.1 % (42.0-52.0); Hemoglobin 12.4 g/dL (14.0-18.0); Mean Corpuscular HGB CONC 33.4 g/dL (32.0-36.0); Mean Corpuscular Hemoglobin 29.9 pg (27.0-31.0); Mean Corpuscular Volume 89.4 fL (78.0-98.0); Mean Platelet Volume 12.7 fL (7.4-10.4); Platelet Count 74 10x3/uL (130-400); RBC Distribution Width 16.3 % (11.5-14.5); Red Blood Cell (RBC) Count 4.15 mill/uL (4.70-6.10)
[2024-06-05 07:53] LABS: Actual Bicarbonate (HCO3a) 20.1 mEq/L (22-28); Base Excess (BEa) -4.5 mEq/L (-2.0 to +3.0); CO2 Tension 35.5 mmHg (35.0-45.0); Calcium, Ionized (arterial) 1.25 mmol/L (1.12-1.30); Carboxyhemoglobin (COHb) 0.5 gm% (0.0-3.0); Hematocrit-ABG 39 % (42.0-52.0); Hemoglobin (Hb) 13.4 g/dL (14.0-18.0); O2 Tension (PaO2), arterial 106.3 mmHg (> 70.0); Potassium - ABG Lab 3.97 mmol/L (3.70-5.30); Puncture Site Left Radial artery
[2024-06-05 07:54] LABS: ALV-art Gradient 277.125 mmHg (0-20)
[2024-06-05] MEDS: Furosemide 40 MG (4 mL) VIAL SLOW IVP SCH (09:25)
[2024-06-05] MEDS: NOREPINEPHRINE 8 MG/250 ML-D5W 250 ML IVPB SCH (15:21)
[2024-06-05] MEDS: Electrolyte Replacement Protocol 1 EACH FS ONE (19:38)
[2024-06-05] MEDS: Insulin Glargine 30 UNITS/0.3 ML VIAL SC SCH (19:58)
[2024-06-06 03:55] LABS: #Basophils 0.05 10x3/uL (0.0-0.2); %Basophils 0.5 % (0.0-1.0); %Eosinophils 2.8 % (0.0-10.0); %Lymphocytes 11.6 % (21.0-51.0); %Monocytes 7.7 % (0.0-10.0); %Neutrophils 73.2 % (42.0-75.0); Hematocrit 36.9 % (42.0-52.0); Hemoglobin 12.4 g/dL (14.0-18.0); Mean Corpuscular HGB CONC 33.6 g/dL (32.0-36.0); Mean Corpuscular Hemoglobin 28.9 pg (27.0-31.0); Mean Platelet Volume 12.5 fL (7.4-10.4); Platelet Count 90 10x3/uL (130-400); RBC Distribution Width 16.2 % (11.5-14.5); Red Blood Cell (RBC) Count 4.29 mill/uL (4.70-6.10)
[2024-06-06 04:04] LABS: Anion Gap 14 mmol/L (10-20); BUN (Urea Nitrogen) 46 mg/dL (8.4-25.7); Calc. Creatinine Clearance 60 mL/min (70-130); Calcium 8.7 mg/dL (7.8-10.44); Carbon Dioxide 24 mmol/L (23-31); Chloride 111 mmol/L (98-107); Estimated GFR 40; Glucose 189 mg/dL (83-110); Potassium 3.7 mmol/L (3.5-5.1); Sodium 145 mmol/L (136-145)
[2024-06-06] MEDS: Levothyroxine Sodium 50 MCG TAB PER TUBE SCH (06:11)
[2024-06-06 07:22] LABS: Actual Bicarbonate (HCO3a) 24.7 mEq/L (22-28); Base Excess (BEa) 1.3 mEq/L (-2.0 to +3.0); CO2 Tension 35.2 mmHg (35.0-45.0); Calcium, Ionized (arterial) 1.19 mmol/L (1.12-1.30); Carboxyhemoglobin (COHb) 1.1 gm% (0.0-3.0); Hematocrit-ABG 38 % (42.0-52.0); Hemoglobin (Hb) 12.9 g/dL (14.0-18.0); O2 Tension (PaO2), arterial 89.4 mmHg (> 70.0); Potassium - ABG Lab 3.43 mmol/L (3.70-5.30); pH, Arterial 7.464 (7.35-7.45)
[2024-06-06 07:27] LABS: Puncture Site Right Radial artery
[2024-06-07 04:10] LABS: #Basophils 0.06 10x3/uL (0.0-0.2); %Basophils 0.7 % (0.0-1.0); %Eosinophils 1.7 % (0.0-10.0); %Lymphocytes 9.7 % (21.0-51.0); %Monocytes 9.1 % (0.0-10.0); %Neutrophils 75.1 % (42.0-75.0); Hematocrit 36.7 % (42.0-52.0); Hemoglobin 12.1 g/dL (14.0-18.0); Mean Corpuscular Hemoglobin 29.7 pg (27.0-31.0); Platelet Count 96 10x3/uL (130-400); RBC Distribution Width 17.1 % (11.5-14.5); Red Blood Cell (RBC) Count 4.08 mill/uL (4.70-6.10)
[2024-06-07 04:22] LABS: Anion Gap 14 mmol/L (10-20); BUN (Urea Nitrogen) 48 mg/dL (8.4-25.7); Calc. Creatinine Clearance 70 mL/min (70-130); Calcium 8.6 mg/dL (7.8-10.44); Carbon Dioxide 23 mmol/L (23-31); Chloride 109 mmol/L (98-107); Estimated GFR 48; Glucose 391 mg/dL (83-110); Potassium 4.2 mmol/L (3.5-5.1); Sodium 142 mmol/L (136-145)
[2024-06-08] MEDS: Insulin Lispro 100 UNIT/ML 10 ML VIAL SC PRN (00:08)
[2024-06-08 02:13] VITALS: BP 110/62
[2024-06-08 04:21] LABS: #Basophils 0.05 10x3/uL (0.0-0.2); %Basophils 0.4 % (0.0-1.0); %Eosinophils 1.3 % (0.0-10.0); %Lymphocytes 9.5 % (21.0-51.0); %Monocytes 7.9 % (0.0-10.0); %Neutrophils 77.2 % (42.0-75.0); Hemoglobin 11.9 g/dL (14.0-18.0); Mean Corpuscular HGB CONC 32.2 g/dL (32.0-36.0); Mean Corpuscular Hemoglobin 29.5 pg (27.0-31.0); Mean Corpuscular Volume 91.8 fL (78.0-98.0); Mean Platelet Volume 12.5 fL (7.4-10.4); Platelet Count 151 10x3/uL (130-400); RBC Distribution Width 16.9 % (11.5-14.5); Red Blood Cell (RBC) Count 4.03 mill/uL (4.70-6.10)
[2024-06-08 04:41] LABS: Anion Gap 13 mmol/L (10-20); BUN (Urea Nitrogen) 43 mg/dL (8.4-25.7); Calc. Creatinine Clearance 73 mL/min (70-130); Calcium 9.1 mg/dL (7.8-10.44); Carbon Dioxide 27 mmol/L (23-31); Chloride 110 mmol/L (98-107); Estimated GFR 53; Glucose 336 mg/dL (83-110); Potassium 4.2 mmol/L (3.5-5.1); Sodium 146 mmol/L (136-145)
[2024-06-08 05:44] VITALS: BMI 37.5
[2024-06-08 12:09] VITALS: TEMP 99.8
== END 2024-06-08 13:03 | disposition hospice, inpatient (51) | DRG 870 ==
LOC: SUATTDRO 09:36 → ERS 09:36 → CCU 16:30
PROVIDERS: ADMIT Internal Medicine; ATTEND Internal Medicine
PROC: 5A1955Z Respiratory Ventilation, Greater than 96 Consecutive Hours (ICD-10-PCS; principal; 2024-06-01)
PROC: 0BH17EZ Insertion of Endotracheal Airway into Trachea, Via Natural or Artificial Opening (ICD-10-PCS; 2024-06-01)
PROC: 3E03329 Introduction of Other Anti-infective into Peripheral Vein, Percutaneous Approach (ICD-10-PCS; 2024-06-01)
PROC: 3E033XZ Introduction of Vasopressor into Peripheral Vein, Percutaneous Approach (ICD-10-PCS; 2024-06-01)
PROC: 30233J1 Transfusion of Nonautologous Serum Albumin into Peripheral Vein, Percutaneous Approach (ICD-10-PCS; 2024-06-01)
PROC: 5A09357 Assistance with Respiratory Ventilation, Less than 24 Consecutive Hours, Continuous Positive Airway Pressure (ICD-10-PCS; 2024-06-04)
PROC: 4A133R1 Monitoring of Arterial Saturation, Peripheral, Percutaneous Approach (ICD-10-PCS; 2024-06-04)
DX: A40.0 Sepsis due to streptococcus, group A (principal); E11.10 Type 2 diabetes mellitus with ketoacidosis without coma; G93.41 Metabolic encephalopathy; R65.21 Severe sepsis with septic shock; J96.01 Acute respiratory failure with hypoxia; J93.0 Spontaneous tension pneumothorax; I50.22 Chronic systolic (congestive) heart failure; M62.82 Rhabdomyolysis; I47.20 Ventricular tachycardia, unspecified; I42.9 Cardiomyopathy, unspecified; I13.0 Hypertensive heart and chronic kidney disease with heart failure and stage 1 through stage 4 chronic kidney disease, or unspecified chronic kidney disease; I24.89 Other forms of acute ischemic heart disease; L03.116 Cellulitis of left lower limb; E03.9 Hypothyroidism, unspecified; J44.9 Chronic obstructive pulmonary disease, unspecified; E78.5 Hyperlipidemia, unspecified; E11.9 Type 2 diabetes mellitus without complications; I25.10 Atherosclerotic heart disease of native coronary artery without angina pectoris; I48.0 Paroxysmal atrial fibrillation; Z79.4 Long term (current) use of insulin; N18.30 Chronic kidney disease, stage 3 unspecified; Z90.89 Acquired absence of other organs; Z51.5 Encounter for palliative care
CPT/HCPCS: 0439T; 36415; 36416; 36600; 70450; 71045; 71275; 72125; 72170; 74018; 74177; 80048; 80053; 80202; 80306; 80307; 81001; 82010; 82550; 82805; 83605; 83690; 83735; 83880; 84145; 84443; 84484; 85025; 85379; 85610; 85730; 86141; 87040; 87077; 87081; 87086; 87149; 87186; 93005; 94002; 94003; 94660; 97139; J0171; J0282; J0692; J0696; J1630; J1815; J1940; J2060; J2470; J2704; J2765; J3010; J3370; J3475; J3480; J3490; J7070; J7120; P9047; Q9957; Q9967

== ENCOUNTER 2024-06-08 13:34 | Inpatient (IN) | payer OTHER ==
[2024-06-08 13:46] VITALS: BMI 34.7
[2024-06-08] MEDS ORDERED: Morphine 2 MG/ML VIAL SLOW IVP PRN (13:48)
[2024-06-08] MEDS ORDERED: Bisacodyl 10 MG SUPP PR PRN (13:48)
[2024-06-08] MEDS ORDERED: Lorazepam 2 MG/ML VIAL SLOW IVP PRN (13:49)
[2024-06-08] MEDS ORDERED: Haloperidol Lactate 5 MG/ML VIAL SLOW IVP PRN (13:50)
[2024-06-08] MEDS: Morphine 4 MG/ML VIAL SLOW IVP SCH (13:51)
[2024-06-08] MEDS ORDERED: Ondansetron PF 4 MG/2 ML Vial IVP PRN (13:51)
[2024-06-08] MEDS ORDERED: Acetaminophen 650 MG Suppository PR PRN (13:51)
[2024-06-08] MEDS: Lorazepam 2 MG/ML VIAL SLOW IVP SCH (13:52)
[2024-06-08] MEDS: Scopolamine 1 mg/72 hour Patch TOP PRN (14:04)
[2024-06-08] MEDS: Morphine 4 MG/ML VIAL SLOW IVP PRN (14:11)
[2024-06-08] MEDS: Lorazepam 2 MG/ML VIAL SLOW IVP PRN (14:11)
== END 2024-06-08 14:42 | disposition expired | DRG 951 ==
LOC: CCU 13:34
PROVIDERS: ADMIT Internal Medicine; ATTEND Internal Medicine
DX: Z51.5 Encounter for palliative care (principal); E11.10 Type 2 diabetes mellitus with ketoacidosis without coma; A41.9 Sepsis, unspecified organism; R65.21 Severe sepsis with septic shock; I50.22 Chronic systolic (congestive) heart failure; I13.0 Hypertensive heart and chronic kidney disease with heart failure and stage 1 through stage 4 chronic kidney disease, or unspecified chronic kidney disease; L03.116 Cellulitis of left lower limb; M62.82 Rhabdomyolysis; E66.9 Obesity, unspecified; E03.9 Hypothyroidism, unspecified; J44.9 Chronic obstructive pulmonary disease, unspecified; E78.5 Hyperlipidemia, unspecified; I25.10 Atherosclerotic heart disease of native coronary artery without angina pectoris; I48.0 Paroxysmal atrial fibrillation; W19.XXXA Unspecified fall, initial encounter; D69.6 Thrombocytopenia, unspecified; E11.22 Type 2 diabetes mellitus with diabetic chronic kidney disease; N18.9 Chronic kidney disease, unspecified; Z68.34 Body mass index [BMI] 34.0-34.9, adult; Z95.1 Presence of aortocoronary bypass graft; Z95.810 Presence of automatic (implantable) cardiac defibrillator
CPT/HCPCS: J2060; J2272